=== PATIENT | female | born 1955 | race Caucasian/White ===

== ENCOUNTER 2016-05-03 11:18 | Inpatient (IN) | payer OTHER ==
[2016-05-03] MEDS ORDERED: SODIUM CHLORIDE 1,000 ML IV ONE (12:54)
[2016-05-03] MEDS ORDERED: METOCLOPRAMIDE HCL INJECTION 10 MG/2 ML VIAL IVPUSH ONE (12:54)
--- NOTE | 2016-05-03 13:03 | PDOC ---
History of Present Illness - General History Source: Patient Exam Limitations: No Limitations - History of Present Illness Initial Comments: CHIEF COMPLAINT: 60 y/o afebrile female with PMH HTN, HLD, diverticulitis c/o lower abdominal pain, vomiting and watery diarrhea today. HISTORY OF PRESENT ILLNESS: The patient admits she suffers from constipation and for the past few days has only been passing small pieces of stool. Yesterday she took dulcolax and today she began having watery diarrhea. She also admits to nausea, vomiting and left lower abdominal pain today. She denies f/c, CARROLL, cough, CP, SOB, back pain, hematuria, dysuria. Pt has had her gallbladder removed. Vital signs on arrival are notable for pulse of 111. REVIEW OF SYSTEMS: GENERAL/CONSTITUTIONAL: No fever/chills. No weakness. No weight change. HEAD, EYES, EARS, NOSE AND THROAT: No change in vision. No ear pain or discharge. No sore throat. CARDIOVASCULAR: No chest pain or shortness of breath. RESPIRATORY: No cough, wheezing, or hemoptysis. GASTROINTESTINAL: +abd pain, nausea, vomiting, watery diarrhea. GENITOURINARY: No dysuria, frequency, or change in urination. MUSCULOSKELETAL: No joint or muscle swelling or pain. No neck or back pain. SKIN: No rash or easy bruising. NEUROLOGIC: No headache, vertigo, loss of consciousness, or loss of sensation. PHYSICAL EXAM: GENERAL: The patient is awake, alert, and fully oriented, in no acute distress. She is well appearing and ambulatory. HEAD: Normal with no signs of trauma. ENT: Pupils equal, round and reactive to light, extraocular movements intact, sclera anicteric, conjunctiva clear. Neck supple. LUNGS: Clear to auscultation bilaterally. Normal excursion. No respiratory distress or use of accessory muscles. CV: RRR, S1/S2, no MRG. Cap refill < 2 sec. ABDOMEN: Soft, non-distended, TTP of left lower quadrant, suprapubic and epigastric regions. No rebound, guarding or rigidity. EXTREMITIES: Normal range of motion, no edema. NEUROLOGICAL: Normal speech, normal gait. CN II-XII grossly intact. PSYCH: Normal mood, normal affect. SKIN: Warm, dry, normal turgor, no rashes or lesions noted. <Wohlrosa mariaan,Desiree - Last Filed: 05/03/16 18:52> <Ernst Orona - Last Filed: 05/05/16 11:25> - General Chief Complaint: Pain, Acute Stated Complaint: ABD PAIN, HEADACHE, VOMITING Time Seen by Provider: 05/03/16 12:53 Past History - Past Medical History GI Disorders: Yes (diverticulitis) HTN: Yes Hypercholesterolemia: Yes - Surgical History Cholecystectomy: Yes - Psycho/Social/Smoking Cessation Hx Anxiety: No Suicidal Ideation: No Smoking History: Never smoked Have you smoked in the past 12 months: No Hx Alcohol Use: No Drug/Substance Use Hx: No <Desiree Thorne - Last Filed: 05/03/16 18:52> <Ernst Orona - Last Filed: 05/05/16 11:25> - Past Medical History Allergies/Adverse Reactions: Allergies Allergy/AdvReac Type Severity Reaction Status Date / Time Penicillins Allergy Verified 05/03/16 11:35 procaine HCl [From Novocain] Allergy Verified 05/03/16 11:35 Home Medications: Ambulatory Orders Enalapril Maleate [Vasotec -] 5 mg PO DAILY 10/29/15 Hydrochlorothiazide [Hctz -] 25 mg PO DAILY 10/29/15 *Physical Exam - Vital Signs Last Vital Signs Temp Pulse Resp BP Pulse Ox 97.9 F 111 H 14 110/68 99 05/03/16 11:36 05/03/16 11:36 05/03/16 11:36 05/03/16 11:36 05/03/16 11:36 <Desiree Thorne - Last Filed: 05/03/16 18:52> - Vital Signs Last Vital Signs Temp Pulse Resp BP Pulse Ox 97.7 F 69 20 101/65 97 05/05/16 05:48 05/05/16 05:48 05/05/16 05:48 05/05/16 05:48 05/04/16 21:00 <Ernst Orona - Last Filed: 05/05/16 11:25> ED Treatment Course - LABORATORY CBC & Chemistry Diagram: 05/03/16 13:06 05/03/16 13:06 <Desiree Thorne - Last Filed: 05/03/16 18:52> - LABORATORY CBC & Chemistry Diagram: 05/04/16 06:00 05/04/16 06:00 - ADDITIONAL ORDERS Additional order review: 05/03/16 14:22 Urine Culture - Final Urine - Urine Clean Catch 05/03/16 13:06 RBC 4.85 MCV 87.1 MCHC 32.3 RDW 13.6 MPV 8.6 Neutrophils % 92.0 H D Lymphocytes % 2.0 L D Monocytes % 6.0 - Medications Given in the ED: ED Medications Discontinued Medications Generic Name Dose Route Start Last Admin Trade Name Mir PRN Reason Stop Dose Admin Sodium Chloride 1,000 mls @ 1,000 mls/hr 05/03/16 12:54 05/03/16 13:30 Normal Saline - IV 05/03/16 13:53 1,000 mls/hr .Q1H ONE Administration Famotidine/Sodium Chloride 50 mls @ 100 mls/hr 05/03/16 13:04 05/03/16 13:30 Pepcid 20 Mg Premixed Ivpb - IVPB 05/03/16 13:33 100 mls/hr ONCE ONE Administration Metronidazole 100 mls @ 100 mls/hr 05/03/16 18:46 05/03/16 20:27 Flagyl 500mg Premixed Ivpb - IVPB 05/03/16 19:45 100 mls/hr ONCE ONE Administration Levofloxacin 100 mls @ 100 mls/hr 05/03/16 18:46 05/03/16 21:32 Levaquin 500 Mg Premixed Ivpb - IVPB 05/03/16 19:45 100 mls/hr ONCE ONE Administration Levofloxacin 100 mls @ 100 mls/hr 05/04/16 10:00 05/04/16 10:00 Levaquin 500 Mg Premixed Ivpb - IVPB Not Given DAILY MIGUEL Metoclopramide HCl 10 mg 05/03/16 12:54 05/03/16 13:30 Reglan Injection - IVPUSH 05/03/16 12:55 10 mg ONCE ONE Administration Morphine Sulfate 2 mg 05/03/16 14:56 05/03/16 15:25 Morphine Injection - IVPUSH 05/03/16 14:57 2 mg ONCE ONE Administration Morphine Sulfate 2 mg 05/04/16 07:03 05/04/16 07:11 Morphine Injection - IVPUSH 05/04/16 07:04 2 mg ONCE ONE Administration <Ernst Orona - Last Filed: 05/05/16 11:25> Medical Decision Making - Medical Decision Making A/P: 60 y/o afebrile female with nausea, vomiting and watery diarrhea today with hx of constipation and diverticulitis. Plan is as follows: 1. Labs 2. Abd flat/upright xray 3. UA/culture 4. IV fluids 5. IV reglan Abd flat/upright xray: IMPRESSION: No evidence of ileus, obstruction or free air. 26 WBC count with left shift ordered lactic and CT of abd/pelvis Ordered IV morphine Ct Scan abd/pelvis IMPRESSION: Suspicious for early mild diverticulitis Discussed the case with Dr. Dupont who feels she should be admitted given her age and wbc count of 26 Ordered IV levaquin and flagyl Informed patient of the plan and she is amenable. <Desiree Thorne - Last Filed: 05/03/16 18:52> - Medical Decision Making 05/05/16 11:25 The patient was seen and evaluated in conjunction with ROMINA Thorne under my direct supervision, ancillary studies were reviewed. I agree with the plan as outlined by ROMINA Thorne . <Ernst Orona - Last Filed: 05/05/16 11:25> *DC/Admit/Observation/Transfer - Discharge Dispostion Admit: Yes <Desiree Thorne - Last Filed: 05/03/16 18:52> <Ernst Orona - Last Filed: 05/05/16 11:25> Diagnosis at time of Disposition: Diverticulitis Qualifiers: Diverticulitis site: large intestine Diverticulitis bleeding: without bleeding Diverticulitis complication: without perforation or abscess Qualified Code(s): K57.32 - Diverticulitis of large intestine without perforation or abscess without bleeding - Referrals
[2016-05-03] MEDS ORDERED: FAMOTIDINE 20 MG/50 ML IVPB 50 ML IVPB ONE ×2 (13:04→13:17)
[2016-05-03] MEDS ORDERED: METOCLOPRAMIDE HCL INJECTION 10 MG/2 ML VIAL ONE (13:17)
[2016-05-03 13:57] LABS: MCH 28.1 pg (25.7-33.7); MCHC 32.3 g/dl (32.0-36.0); MEAN CELL VOLUME 87.1 fl (80-96); MEAN PLT VOLUME 8.6 fl (7.5-11.1); PLATELET COUNT 295 K/MM3 (134-434); RDW 13.6 % (11.6-15.6); WHITE BLOOD COUNT 26.5 K/mm3 (4.0-10.0)
[2016-05-03 14:30] LABS: ANION GAP 10 (8-16); CALCIUM 9.9 mg/dL (8.5-10.1); CO2 32 mmol/L (21-32); GLUCOSE,RANDOM 103 mg/dL (74-106)
[2016-05-03 14:34] LABS: ALK PHOS 88 U/L (45-117); BILIRUBIN,TOTAL 0.7 mg/dL (0.2-1.0); CREATININE 0.8 mg/dL (0.55-1.02); SGOT/AST 16 U/L (15-37); SGPT/ALT 27 U/L (12-78); TOT PROT 7.8 g/dl (6.4-8.2)
[2016-05-03 14:44] LABS: PLATELET ESTIMATE ADEQUATE (NORMAL)
[2016-05-03 14:48] LABS: URINE APPEARANCE CLEAR; URINE BILIRUBIN NEGATIVE (NEGATIVE); URINE BLOOD NEGATIVE (NEGATIVE); URINE COLOR YELLOW; URINE GLUCOSE (UA) NEGATIVE (NEGATIVE); URINE KETONE NEGATIVE (NEGATIVE); URINE LEUK ESTERASE NEGATIVE (NEGATIVE); URINE NITRITE NEGATIVE (NEGATIVE); URINE PROTEIN NEGATIVE (NEGATIVE); URINE UROBILINOGEN 2.0 E.U/dl E.U./dl (0.2-1.0)
[2016-05-03] MEDS ORDERED: morphine CARPU-JECT 2 MG/1 ML DISP.SYRIN IVPUSH ONE (14:56)
[2016-05-03] MEDS ORDERED: morphine CARPU-JECT 2 MG/1 ML DISP.SYRIN ONE (15:20)
--- NOTE | 2016-05-03 16:04 | EKG ---
Test Reason : Blood Pressure : / mmHG Vent. Rate : 091 BPM Atrial Rate : 091 BPM P-R Int : 146 ms QRS Dur : 070 ms QT Int : 372 ms P-R-T Axes : 040 040 019 degrees QTc Int : 457 ms NORMAL SINUS RHYTHM NORMAL ECG WHEN COMPARED WITH ECG OF 29-OCT-2015 08:05, NO SIGNIFICANT CHANGE WAS FOUND Confirmed by GERA ALVA MD ([id number]) on 05/03/2016 4:04:12 PM Referred By: Confirmed By:GERA ALVA MD
[2016-05-03] MEDS ORDERED: METRONIDAZOLE 500 MG PREMIXED 100 ML IVPB ONE ×2 (18:46→20:19)
[2016-05-03] MEDS ORDERED: LEVOFLOXACIN 500 MG IVPB 100 ML IVPB ONE ×2 (18:46→21:27)
[2016-05-03 22:10] VITALS: BMI 22.6
[2016-05-03] MEDS ORDERED: DEXTROSE 5%-0.45% SALINE 1,000 ML IV SCH (22:15)
[2016-05-04] MEDS: METRONIDAZOLE 500 MG PREMIXED 100 ML IVPB SCH ×3 (02:25→17:52)
[2016-05-04] MEDS ORDERED: morphine CARPU-JECT 2 MG/1 ML DISP.SYRIN IVPUSH ONE (07:03)
[2016-05-04 07:33] LABS: BASOPHIL 0.2 % (0-2.0); EOSINOPHIL 1.8 % (0-4.5); MCH 29.2 pg (25.7-33.7); MCHC 33.7 g/dl (32.0-36.0); MEAN CELL VOLUME 86.8 fl (80-96); MEAN PLT VOLUME 8.6 fl (7.5-11.1); PLATELET COUNT 251 K/MM3 (134-434); RDW 13.7 % (11.6-15.6); WHITE BLOOD COUNT 11.6 K/mm3 (4.0-10.0)
[2016-05-04 07:49] LABS: CALCIUM 8.5 mg/dL (8.5-10.1)
[2016-05-04 07:55] LABS: ALBUMIN 3.1 g/dl (3.4-5.0); ALK PHOS 69 U/L (45-117); ANION GAP 8 (8-16); BILIRUBIN,TOTAL 0.5 mg/dL (0.2-1.0); CO2 28 mmol/L (21-32); CREATININE 0.8 mg/dL (0.55-1.02); GLUCOSE,RANDOM 91 mg/dL (74-106); SGOT/AST 41 U/L (15-37); SGPT/ALT 56 U/L (12-78); TOT PROT 6.1 g/dl (6.4-8.2)
[2016-05-04] MEDS: HYDROCHLOROTHIAZIDE 25 MG TABLET (FP) PO SCH (09:31)
[2016-05-04] MEDS: ENALAPRIL MALEATE 5 MG TABLET (FP) PO SCH (09:31)
[2016-05-04] MEDS: HEPARIN NA (PORCINE) 5,000 UNITS/ML 1ML VIAL SQ SCH ×2 (09:31→22:00)
[2016-05-04] MEDS ORDERED: LEVOFLOXACIN 500 MG IVPB 100 ML IVPB SCH (10:00)
--- NOTE | 2016-05-04 10:48 | PN ---
Progress Note (short form) - Note Progress Note: ID Consult dictated Acute diverticulitis Possible sepsis secondary to acute diverticulitis Leukocytosis PCN allergy Pending cultures, empiric ceftriaxone/ flagyl
[2016-05-04] MEDS: CEFTRIAXONE 100 ML IVPB SCH (14:53)
--- NOTE | 2016-05-04 15:41 | CONS ---
DATE OF CONSULTATION: DATE OF DICTATION: INFECTIOUS DISEASE CONSULTATION HISTORY OF PRESENT ILLNESS: The patient is a 60-year-old female who is evaluated for acute diverticulitis. The patient was admitted to the hospital on May 03, 2016, with complaints of lower abdominal pain, left greater than right, nausea, vomiting, and nonbloody diarrhea. The patient states she normally suffers from constipation. Over the past several days, she had been passing small amounts of stool. She took some Dulcolax and subsequently developed watery, nonbloody diarrhea. She also complained of nausea and vomiting, and developed left lower quadrant abdominal pain on the day prior to admission. She denies any associated fever or chills. The patient presented to the emergency room where she was noted to be tachycardic. Her white blood cell count was markedly elevated at 26,000. A CAT scan of the abdomen and pelvis showed evidence of acute diverticulitis involving the descending and sigmoid colon. She was empirically treated with Levaquin and Flagyl. She has a history of PENICILLIN allergy. She denied prior episode of diverticulitis. PAST MEDICAL HISTORY: Positive for hyperlipidemia, hypertension, history of osteoarthritis. PAST SURGICAL HISTORY: Status post cholecystectomy. ALLERGIES: PENICILLIN and PROCAINE. Patient reports developing a rash many years ago with PENICILLIN. Denies history of anaphylaxis. MEDICATION: Include Vasotec and hydrochlorothiazide. SOCIAL HISTORY: She lives at home. She is a nonsmoker, nondrinker. SYSTEMS REVIEW: Neurologic: No loss of consciousness, seizure activity, or focal weakness. Cardiac: Negative chest pain or palpitations. Respiratory: Negative cough or sputum production. Gastrointestinal: As per HPI. Genitourinary: Negative for urinary tract infection. LABORATORY DATA: White count on admission 26,000. Hematocrit 34.2, platelet count 251, creatinine 0.8. Liver enzymes normal. Urine: leukocyte esterase negative. PHYSICAL EXAMINATION: General: She is awake and alert. She is in no acute distress. Vital signs: Temperature 98.6, blood pressure 123/73, pulse 83 regular, respirations 16 per minute. HEENT: Sclerae anicteric. Cardiovascular: Heart sounds S1, S2. Respiratory: Lungs clear. Abdomen: Positive bowel sounds. Mild tenderness left lower quadrant to deep palpation. No mass, rebound, or rigidity. Extremities: Negative for edema. IMPRESSION: 1. Acute sigmoid/descending colon diverticulitis, uncomplicated. 2. Possible sepsis secondary to acute diverticulitis. 3. Leukocytosis. 4. PENICILLIN allergy. Pending cultures, empiric antibiotic coverage in this PENICILLIN allergic patient with ceftriaxone and Flagyl. Await culture results. GI evaluation. Will follow. Thank you for the kind referral. NAYLA GO M.D. [id number]
--- NOTE | 2016-05-04 16:18 | HP ---
Admitting History and Physical - Past Medical History ...: No - Smoking History Smoking history: Never smoked Have you smoked in the past 12 months: No - Alcohol/Substance Use Hx Alcohol Use: No Home Medications - Allergies Allergies/Adverse Reactions: Allergies Allergy/AdvReac Type Severity Reaction Status Date / Time Penicillins Allergy Verified 05/03/16 11:35 procaine HCl [From Novocain] Allergy Verified 05/03/16 11:35 - Home Medications Home Medications: Ambulatory Orders Enalapril Maleate [Vasotec -] 5 mg PO DAILY 10/29/15 Hydrochlorothiazide [Hctz -] 25 mg PO DAILY 10/29/15 Physical Examination Vital Signs: Vital Signs Temperature 98.6 F 05/04/16 14:47 Pulse Rate 88 05/04/16 14:47 Respiratory Rate 20 05/04/16 14:47 Blood Pressure 112/69 05/04/16 14:47 O2 Sat by Pulse Oximetry (%) 98 05/04/16 09:00 Labs: CBC, BMP 05/04/16 06:00 05/04/16 06:00
--- NOTE | 2016-05-04 18:44 | CON.GI ---
Consult Consult Specialty:: gastroenterology Referred by:: Dr Dupont - History of Present Illness History of Present Illness: 60 y/o female was doing well until 3am this morning when the patient developed 10/10 llq pain, no nausea, no vomiting, no fever. She had a colonoscopy [address] Cason. This evening the abdominal pain resolved. Tolerated clear liquids. - Past Medical History ...: No - Alcohol/Substance Use Hx Alcohol Use: No - Smoking History Smoking history: Never smoked Have you smoked in the past 12 months: No Home Medications - Allergies Allergies/Adverse Reactions: Allergies Allergy/AdvReac Type Severity Reaction Status Date / Time Penicillins Allergy Verified 05/03/16 11:35 procaine HCl [From Novocain] Allergy Verified 05/03/16 11:35 - Home Medications Home Medications: Ambulatory Orders Enalapril Maleate [Vasotec -] 5 mg PO DAILY 10/29/15 Hydrochlorothiazide [Hctz -] 25 mg PO DAILY 10/29/15 Physical Exam-GI Vital Signs: Vital Signs Temperature 98.4 F 05/04/16 18:00 Pulse Rate 77 05/04/16 18:00 Respiratory Rate 20 05/04/16 18:00 Blood Pressure 114/74 05/04/16 18:00 O2 Sat by Pulse Oximetry (%) 98 05/04/16 09:00 Constitutional: Yes: Well Nourished Eyes: Yes: Conjunctiva Clear HENT: Yes: Atraumatic Neck: Yes: Supple Cardiovascular: Yes: Regular Rate and Rhythm Respiratory: Yes: CTA Bilaterally ...Palpate: Yes: Soft. No: Firm/Rigid, Guarding, Hepatomegaly, Mass, Pulsatile Mass, Splenomegaly, Tenderness, Tenderness, Epigastium Labs: CBC, BMP 05/04/16 06:00 05/04/16 06:00 Problem List - Problems (1) Diverticulitis Assessment/Plan: --resolving R> advance to low residue lactose free diet made aware to ff-up for repeat colonoscopy in 8 weeks continue Levaquin and flagyl as an outpatient for 2 weeks Code(s): K57.92 - DVTRCLI OF INTEST, PART UNSP, W/O PERF OR ABSCESS W/O BLEED Qualifiers: Diverticulitis site: large intestine Diverticulitis bleeding: without bleeding Diverticulitis complication: without perforation or abscess Qualified Code(s): K57.32 - Diverticulitis of large intestine without perforation or abscess without bleeding
[2016-05-05] MEDS: METRONIDAZOLE 500 MG PREMIXED 100 ML IVPB SCH ×2 (01:30→11:08)
[2016-05-05] MEDS: CEFTRIAXONE 100 ML IVPB SCH (11:05)
[2016-05-05] MEDS: ENALAPRIL MALEATE 5 MG TABLET (FP) PO SCH (11:06)
[2016-05-05] MEDS: HYDROCHLOROTHIAZIDE 25 MG TABLET (FP) PO SCH (11:06)
[2016-05-05] MEDS: HEPARIN NA (PORCINE) 5,000 UNITS/ML 1ML VIAL SQ SCH (11:07)
--- NOTE | 2016-05-05 11:28 | PN ---
Progress Note, Physician History of Present Illness: No c/o abdominal pain No N/V/D Reports + BM No fever/ chills Tolerated cephalosporin BC (-) WBC improved - Current Medication List Current Medications: Active Medications Enalapril Maleate (Vasotec -) 5 mg PO DAILY [facility] Last Admin: 05/05/16 11:06 Dose: 5 mg Heparin Sodium (Porcine) (Heparin -) 5,000 unit SQ BID [facility] Last Admin: 05/05/16 11:07 Dose: 5,000 unit Hydrochlorothiazide (Hctz -) 25 mg PO DAILY [facility] Last Admin: 05/05/16 11:06 Dose: 25 mg Dextrose/Sodium Chloride (D5-1/2ns -) 1,000 mls @ 75 mls/hr IV ASDIR [facility] Last Admin: 05/03/16 22:47 Dose: 75 mls/hr Metronidazole (Flagyl 500mg Premixed Ivpb -) 100 mls @ 100 mls/hr IVPB Q8H-IV [facility] Last Admin: 05/05/16 11:08 Dose: 100 mls/hr Ceftriaxone Sodium (Rocephin 2gm Ivpb (Pre-Docked)) 100 mls @ 200 mls/hr IVPB DAILY [facility] Last Admin: 05/05/16 11:05 Dose: 200 mls/hr - Objective Vital Signs: Vital Signs Temperature 97.7 F 05/05/16 05:48 Pulse Rate 69 05/05/16 05:48 Respiratory Rate 20 05/05/16 05:48 Blood Pressure 101/65 05/05/16 05:48 O2 Sat by Pulse Oximetry (%) 97 05/04/16 21:00 Constitutional: Yes: No Distress Eyes: Yes: Conjunctiva Clear Cardiovascular: Yes: Regular Rate and Rhythm, S1, S2 Respiratory: Yes: CTA Bilaterally Gastrointestinal: Yes: Normal Bowel Sounds, Soft. No: Tenderness Edema: No Labs: CBC, BMP 05/04/16 06:00 05/04/16 06:00 Assessment/Plan Acute diverticulitis- improved PCN allergy May substitute po levaquin 500mg qd + flagyl 500mg tid x 10-14d Outpatient GI follow up
[2016-05-05 14:31] VITALS: BP 107/50; PULSE 89; TEMP 98.7
== END 2016-05-05 16:13 | disposition home or self-care (01) | DRG 392 ==
LOC: JER 11:18 → JERBED 18:51 → J7W 21:45
PROVIDERS: ADMIT Internal Medicine; ATTEND Internal Medicine
DX: K57.32 Diverticulitis of large intestine without perforation or abscess without bleeding (principal); I10 Essential (primary) hypertension; E78.5 Hyperlipidemia, unspecified; Z88.0 Allergy status to penicillin
CPT/HCPCS: 36415; 74020-TC; 74177-TC; 80053; 81003; 82378; 83605; 83690; 85025; 86301; 87040; 87086; 93005; 93010; 99285-25; J1644; Q9967

== ENCOUNTER 2016-05-13 12:22 | Emergency (ER) | payer OTHER ==
[2016-05-13 12:43] VITALS: PULSE 82; TEMP 98.3; BMI 23.0
[2016-05-13] MEDS ORDERED: ONDANSETRON 4 MG/2 ML VIAL IVPUSH ONE (13:34)
[2016-05-13] MEDS ORDERED: KETOROLAC TROMETHAMINE 30 MG/1 ML VIAL IVPUSH ONE (13:34)
[2016-05-13] MEDS ORDERED: SODIUM CHLORIDE 1,000 ML IV STA (13:34)
[2016-05-13] MEDS ORDERED: PANTOPRAZOLE SODIUM 40 MG in SODIUM CHLORIDE 100 ML IVPB ONE (13:34)
[2016-05-13] MEDS ORDERED: PANTOPRAZOLE SODIUM 100 ML IVPB ONE (14:00)
[2016-05-13] MEDS ORDERED: KETOROLAC TROMETHAMINE 30 MG/1 ML VIAL ONE (14:00)
[2016-05-13] MEDS ORDERED: ONDANSETRON 4 MG/2 ML VIAL ONE (14:00)
[2016-05-13 14:03] LABS: BASOPHIL 0.6 % (0-2.0); EOSINOPHIL 1.8 % (0-4.5); MCH 29.3 pg (25.7-33.7); MCHC 33.7 g/dl (32.0-36.0); MEAN CELL VOLUME 86.8 fl (80-96); MEAN PLT VOLUME 7.6 fl (7.5-11.1); NEUTROPHILS 62.5 % (42.8-82.8); PLATELET COUNT 324 K/MM3 (134-434); RDW 13.7 % (11.6-15.6); WHITE BLOOD COUNT 6.6 K/mm3 (4.0-10.0)
[2016-05-13 14:29] LABS: ALK PHOS 72 U/L (45-117); ANION GAP 7 (8-16); BILIRUBIN,TOTAL 0.4 mg/dL (0.2-1.0); CALCIUM 9.6 mg/dL (8.5-10.1); CO2 34 mmol/L (21-32); CREATININE 0.8 mg/dL (0.55-1.02); GLUCOSE,RANDOM 99 mg/dL (74-106); MAGNESIUM 2.3 mg/dL (1.8-2.4); SGOT/AST 43 U/L (15-37); SGPT/ALT 66 U/L (12-78); TOT PROT 7.6 g/dl (6.4-8.2)
[2016-05-13 14:32] LABS: TROPONIN I < 0.02 ng/ml (0.00-0.05)
--- NOTE | 2016-05-13 14:58 | PDOC ---
History of Present Illness - General Chief Complaint: Pain, Acute Stated Complaint: ABD PAIN Time Seen by Provider: 05/13/16 13:02 History Source: Patient Exam Limitations: No Limitations - History of Present Illness Travel History: No Initial Comments: 05/13/16 14:07 60-year-old female presents the ED with complaints of epigastric to left upper quadrant cramping social mild nausea and headache since Sunday. Patient states was prescribed Flagyl and Levaquin upon discharge after being admitted a few weeks ago for diverticulitis. Patient states she continues on antibiotics which she is continued to take despite her symptoms. Patient denies history of gastritis, fever, chills, chest pain, shortness of breath, dysuria, or diarrhea. Timing/Duration: reports: intermittent Quality: reports: moderate, burning, sharpness Abdominal Pain Onset Location: reports: epigastric Pain Radiation: reports: LUQ Activities at Onset: reports: none Aggravating Factors: improves with: None Alleviating Factors: improves with: None Past History - Past Medical History Allergies/Adverse Reactions: Allergies Allergy/AdvReac Type Severity Reaction Status Date / Time Penicillins Allergy Verified 05/13/16 12:40 procaine HCl [From Novocain] Allergy Verified 05/13/16 12:40 Home Medications: Ambulatory Orders Enalapril Maleate [Vasotec -] 5 mg PO DAILY 10/29/15 Hydrochlorothiazide [Hctz -] 25 mg PO DAILY 10/29/15 Aspirin [ASA -] 81 mg PO DAILY 05/13/16 Simvastatin 20 mg PO DAILY 05/13/16 Anemia: No Asthma: No Cancer: No CVA: No COPD: No CHF: No Dementia: No GI Disorders: Yes (diverticulitis) HTN: Yes Hypercholesterolemia: Yes Seizures: No - Surgical History Cardiac Surgery: No Cholecystectomy: Yes Neurologic Surgery: No - Psycho/Social/Smoking Cessation Hx Anxiety: No Suicidal Ideation: No Smoking History: Never smoked Have you smoked in the past 12 months: No Hx Alcohol Use: No Drug/Substance Use Hx: No Hx Substance Use Treatment: No Patient Lives Alone: No Lives with/in: spouse/SO Abd/GI Specific PMHX - Complaint Specific PMHX Diverticulitis: Yes Review of Systems - Review of Systems Able to Perform ROS?: Yes Constitutional: No: Symptoms Reported HEENTM: No: Symptoms Reported Respiratory: No: Symptoms reported Cardiac (ROS): No: Symptoms Reported ABD/GI: Yes: Nausea, Indigestion, Abdominal cramping : No: Symptoms Reported Musculoskeletal: No: Symptoms Reported Integumentary: No: Symptoms Reported Neurological: Yes: Headache Endocrine: No: Symptoms Reported Hematologic/Lymphatic: No: Symptoms Reported *Physical Exam - Vital Signs Last Vital Signs Temp Pulse Resp BP Pulse Ox 98.3 F 82 19 113/74 98 05/13/16 12:40 05/13/16 12:40 05/13/16 12:40 05/13/16 12:40 05/13/16 12:40 - Physical Exam General Appearance: Yes: Nourished, Appropriately Dressed. No: Apparent Distress HEENT: negative: Pale Conjunctivae Neck: positive: Normal Thyroid, Supple Respiratory/Chest: positive: Lungs Clear, Normal Breath Sounds. negative: Respiratory Distress, Accessory Muscle Use Cardiovascular: positive: Regular Rhythm, Regular Rate. negative: Murmur Gastrointestinal/Abdominal: positive: Soft, Tenderness (epigastric, left upper quadrant) Musculoskeletal: negative: CVA Tenderness Extremity: positive: Normal Capillary Refill. negative: Pedal Edema Integumentary: positive: Normal Color, Warm, Moist Neurologic: positive: Motor Strength 5/5 (ambulatory) Heart Score/ECG Review - ECG Intrepretation Rhythm: Regular Rhythm (66 normal sinus Rhythm.) ED Treatment Course - LABORATORY CBC & Chemistry Diagram: 05/13/16 14:00 05/13/16 14:00 - ADDITIONAL ORDERS Additional order review: Laboratory Results 05/13/16 05/13/16 14:00 14:00 Sodium 141 Potassium 3.7 Chloride 100 Carbon Dioxide 34 H D Anion Gap 7 L BUN 13 D Creatinine 0.8 Creat Clearance w eGFR > 60 Random Glucose 99 Calcium 9.6 Magnesium 2.3 Total Bilirubin 0.4 AST 43 H ALT 66 Alkaline Phosphatase 72 Creatine Kinase 89 Troponin I < 0.02 Total Protein 7.6 D Albumin 4.0 D Lipase 133 05/13/16 14:00 RBC 4.56 MCV 86.8 MCHC 33.7 RDW 13.7 MPV 7.6 D Neutrophils % 62.5 Lymphocytes % 24.5 Monocytes % 10.6 H Eosinophils % 1.8 Basophils % 0.6 - Medications Given in the ED: ED Medications Discontinued Medications Generic Name Dose Route Start Last Admin Trade Name Freq PRN Reason Stop Dose Admin Pantoprazole Sodium 40 mg/ 100 mls @ 200 mls/hr 05/13/16 13:34 05/13/16 14:08 Sodium Chloride IVPB 05/13/16 14:03 200 mls/hr ONCE ONE Administration Sodium Chloride 1,000 mls @ 1,000 mls/hr 05/13/16 13:34 05/13/16 14:08 Normal Saline - IV 05/13/16 14:33 1,000 mls/hr ASDIR STA Administration Ketorolac Tromethamine 30 mg 05/13/16 13:34 05/13/16 14:09 Toradol Injection - IVPUSH 05/13/16 13:35 30 mg ONCE ONE Administration Ondansetron HCl 4 mg 05/13/16 13:34 05/13/16 14:09 Zofran Injection IVPUSH 05/13/16 13:35 4 mg ONCE ONE Administration Medical Decision Making - Medical Decision Making 05/13/16 13:21 Patient epigastric and left upper quadrant burning and pain for the past 5 days patient states has been on Flagyl and Levaquin for diverticulitis which she was told she had 2 weeks ago. Patient has no other complaints presently except for mild frontal headache and nausea. Patient ordered for labs including Toradol, Protonix and Zofran. Patient also ordered for IV fluids and we will evaluate shortly 05/13/16 15:23 Laboratory Tests 05/13/16 05/13/16 05/13/16 14:00 14:00 14:00 WBC 6.6 D Hgb 13.3 D Hct 39.6 D Neutrophils % 62.5 Monocytes % 10.6 H Sodium 141 Potassium 3.7 Chloride 100 Carbon Dioxide 34 H D Anion Gap 7 L BUN 13 D Creatinine 0.8 Random Glucose 99 Calcium 9.6 AST 43 H ALT 66 Troponin I < 0.02 Lipase 133 05/13/16 16:22 Laboratory Tests 05/13/16 15:20 Urine Ketones Negative Urine Nitrite Negative Ur Leukocyte Esterase Trace H Patient states feeling much better with no complaints presently. Patient be discharged, Protonix and recommended to continue her Levaquin and Flagyl area patient is a recommended to contact Dr. Cho her friction saw operator on Sunday to discuss today's visit. *DC/Admit/Observation/Transfer Diagnosis at time of Disposition: Gastritis Qualifiers: Gastritis type: unspecified gastritis Chronicity: acute Gastritis bleeding: without bleeding Qualified Code(s): K29.00 - Acute gastritis without bleeding Gastroesophageal reflux disease Qualifiers: Esophagitis presence: without esophagitis Qualified Code(s): K21.9 - Gastro- esophageal reflux disease without esophagitis - Discharge Dispostion Disposition: HOME Condition at time of disposition: Improved - Referrals Referrals: Hannah Luna [Primary Care Provider] - Geoffrey Cho MD [Staff Physician] - - Patient Instructions Printed Discharge Instructions: DI for Gastritis, DI for Gastroesophageal Reflux Disease (GERD) Additional Instructions: Please take Protonix as prescribed until you complete your Levaquin and Flagyl starting tomorrow since your given your first dose here in the ER. Please also avoid spicy greasy food. Please contact Dr. Cho on Sunday to discuss today's visit.
--- NOTE | 2016-05-13 15:23 | PDOC ---
*Physical Exam - Vital Signs Last Vital Signs Temp Pulse Resp BP Pulse Ox 98.3 F 82 19 113/74 98 05/13/16 12:40 05/13/16 12:40 05/13/16 12:40 05/13/16 12:40 05/13/16 12:40 Heart Score/ECG Review #1 ECG reviewed & interpreted by me at: 15:24 General ECG Interpretation: Sinus Rhythm, Normal Rate, Normal Intervals, No acute ischemic changes ED Treatment Course - LABORATORY CBC & Chemistry Diagram: 05/13/16 14:00 05/13/16 14:00 - ADDITIONAL ORDERS Additional order review: Laboratory Results 05/13/16 05/13/16 14:00 14:00 Sodium 141 Potassium 3.7 Chloride 100 Carbon Dioxide 34 H D Anion Gap 7 L BUN 13 D Creatinine 0.8 Creat Clearance w eGFR > 60 Random Glucose 99 Calcium 9.6 Magnesium 2.3 Total Bilirubin 0.4 AST 43 H ALT 66 Alkaline Phosphatase 72 Creatine Kinase 89 Troponin I < 0.02 Total Protein 7.6 D Albumin 4.0 D Lipase 133 05/13/16 14:00 RBC 4.56 MCV 86.8 MCHC 33.7 RDW 13.7 MPV 7.6 D Neutrophils % 62.5 Lymphocytes % 24.5 Monocytes % 10.6 H Eosinophils % 1.8 Basophils % 0.6 - Medications Given in the ED: ED Medications Discontinued Medications Generic Name Dose Route Start Last Admin Trade Name Freq PRN Reason Stop Dose Admin Pantoprazole Sodium 40 mg/ 100 mls @ 200 mls/hr 05/13/16 13:34 05/13/16 14:08 Sodium Chloride IVPB 05/13/16 14:03 200 mls/hr ONCE ONE Administration Sodium Chloride 1,000 mls @ 1,000 mls/hr 05/13/16 13:34 05/13/16 14:08 Normal Saline - IV 05/13/16 14:33 1,000 mls/hr ASDIR STA Administration Ketorolac Tromethamine 30 mg 05/13/16 13:34 05/13/16 14:09 Toradol Injection - IVPUSH 05/13/16 13:35 30 mg ONCE ONE Administration Ondansetron HCl 4 mg 05/13/16 13:34 05/13/16 14:09 Zofran Injection IVPUSH 05/13/16 13:35 4 mg ONCE ONE Administration Medical Decision Making - Medical Decision Making 05/13/16 15:23 Pt seen by Midlevel Provider under my direct supervision Ancillary studies reviewed I agree with plan as outlined by Midlevel Provider *DC/Admit/Observation/Transfer Diagnosis at time of Disposition: Gastritis, GERD (gastroesophageal reflux disease) - Discharge Dispostion Disposition: HOME Condition at time of disposition: Improved - Prescriptions Prescriptions: Pantoprazole Sodium [Protonix] 40 mg PO DAILY #7 tablet.dr - Referrals Referrals: Geoffrey Cho MD [Staff Physician] - Hannah Luna [Primary Care Provider] - - Patient Instructions Printed Discharge Instructions: DI for Gastroesophageal Reflux Disease (GERD), DI for Gastritis Additional Instructions: Please take Protonix as prescribed until you complete your Levaquin and Flagyl starting tomorrow since your given your first dose here in the ER. Please also avoid spicy greasy food. Please contact Dr. Cho on Sunday to discuss today's visit.
[2016-05-13 15:33] LABS: URINE APPEARANCE CLEAR; URINE BILIRUBIN NEGATIVE (NEGATIVE); URINE BLOOD NEGATIVE (NEGATIVE); URINE COLOR LTYELLOW; URINE GLUCOSE (UA) NEGATIVE (NEGATIVE); URINE KETONE NEGATIVE (NEGATIVE); URINE NITRITE NEGATIVE (NEGATIVE); URINE PROTEIN NEGATIVE (NEGATIVE); URINE UROBILINOGEN NEGATIVE E.U./dl (0.2-1.0)
[2016-05-13 15:39] LABS: URINE LEUK ESTERASE TRACE (NEGATIVE)
[2016-05-13 16:38] VITALS: BP 120/78
[2016-05-13 17:01] LABS: URINE MUCUS RARE; URINE RBC <1 /hpf (0-3); URINE WBC 2 /hpf (3-5)
--- NOTE | 2016-05-14 20:28 | EKG ---
Test Reason : Blood Pressure : / mmHG Vent. Rate : 066 BPM Atrial Rate : 066 BPM P-R Int : 150 ms QRS Dur : 080 ms QT Int : 414 ms P-R-T Axes : 046 012 030 degrees QTc Int : 434 ms NORMAL SINUS RHYTHM NORMAL ECG WHEN COMPARED WITH ECG OF 03-MAY-2016 14:11, NO SIGNIFICANT CHANGE WAS FOUND Confirmed by CHRISTINE ERICKSON MD ([id number]) on 05/14/2016 8:28:40 PM Referred By: Confirmed By:CHRISTINE ERICKSON MD
== END 2016-05-13 16:39 | disposition home or self-care (01) ==
LOC: JER 12:22
PROC: 3E033GC Introduction of Other Therapeutic Substance into Peripheral Vein, Percutaneous Approach (ICD-10-PCS; principal; 2016-05-13)
PROC: 3E0333Z Introduction of Anti-inflammatory into Peripheral Vein, Percutaneous Approach (ICD-10-PCS; 2016-05-13)
DX: K29.60 Other gastritis without bleeding (principal); K21.9 Gastro-esophageal reflux disease without esophagitis; I10 Essential (primary) hypertension; E78.00 Pure hypercholesterolemia, unspecified; K57.92 Diverticulitis of intestine, part unspecified, without perforation or abscess without bleeding
CPT/HCPCS: 36415; 80053; 81003; 81015; 82550; 83690; 83735; 84484; 85025; 93005; 93010; 96365; 96376; 99282-25

== ENCOUNTER 2017-06-14 20:44 | Emergency (ER) | payer OTHER ==
[2017-06-14 21:05] VITALS: BP 159/99; PULSE 102; TEMP 98.5; BMI 22.8
--- NOTE | 2017-06-14 21:05 | PDOC ---
Rapid Medical Evaluation Time Seen by Provider: 06/14/17 21:00 Medical Evaluation: Allergies Allergy/AdvReac Type Severity Reaction Status Date / Time Penicillins Allergy Verified 06/02/17 11:32 procaine HCl [From Novocain] Allergy Verified 06/02/17 11:32 06/14/17 21:00 I have performed a brief in-person evaluation of this patient. The patient presents with a chief complaint of: RLQ "feels hot", "i have a weird flavor in my mouth", denies nausea/vomiting/diarrhea, urinary frequency Pertinent physical exam findings: no CVA tenderness, no tenderness to RLQ I have ordered the following: labs, UA, UCx The patient will proceed to the ED for further evaluation. Discharge Disposition - Diagnosis Abdominal discomfort in right lower quadrant - Referrals - Patient Instructions - Post Discharge Activity
--- NOTE | 2017-06-14 21:42 | PDOC ---
History of Present Illness - General Chief Complaint: Pain Stated Complaint: PAIN Time Seen by Provider: 06/14/17 21:00 History Source: Patient - History of Present Illness Initial Comments: 06/14/17 22:59 61 year old female with lower abdominal "warmth" x 1 days. reports dysuria and frequency of urination x 1 week. denies fever/ chills, nausea, vomiting, abdominal pain. PMhx: htn. Past History - Past Medical History Allergies/Adverse Reactions: Allergies Allergy/AdvReac Type Severity Reaction Status Date / Time Penicillins Allergy Verified 06/14/17 21:05 procaine HCl [From Novocain] Allergy Verified 06/14/17 21:05 Home Medications: Ambulatory Orders Enalapril Maleate [Vasotec -] 5 mg PO DAILY 10/29/15 Hydrochlorothiazide [Hctz -] 25 mg PO DAILY 10/29/15 Aspirin [ASA -] 81 mg PO DAILY 05/13/16 Pantoprazole Sodium [Protonix] 40 mg PO DAILY #7 tablet. 05/13/16 Simvastatin 20 mg PO DAILY 05/13/16 Cyclobenzaprine HCl 10 mg PO Q8H PRN #14 tablet 06/02/17 Lidocaine 5% Patch [Lidoderm Patch -] 1 patch TP DAILY #10 patch 06/02/17 Naproxen 500 mg PO TID PRN #30 tablet 06/02/17 Sulfamethoxazole/Trimethoprim [Bactrim Ds -] 1 tab PO BID #10 tablet 06/14/17 Anemia: No Asthma: No Cancer: No Cardiac Disorders: No CVA: No COPD: No CHF: No DVT: No Dementia: No Diabetes: No Dialysis: No GI Disorders: Yes (diverticulitis, constipation) HTN: Yes Hypercholesterolemia: Yes Seizures: No - Surgical History Cardiac Surgery: No Cholecystectomy: Yes Neurologic Surgery: No - Suicide/Smoking/Psychosocial Hx Smoking History: Never smoked Have you smoked in the past 12 months: No Information on smoking cessation initiated: No Hx Alcohol Use: No Drug/Substance Use Hx: No Substance Use Type: None Hx Substance Use Treatment: No *Physical Exam - Vital Signs Last Vital Signs Temp Pulse Resp BP Pulse Ox 98.5 F 102 H 19 159/99 100 06/14/17 21:01 06/14/17 21:01 06/14/17 21:01 06/14/17 21:01 06/14/17 21:01 - Physical Exam General Appearance: Yes: Appropriately Dressed Respiratory/Chest: positive: Lungs Clear, Normal Breath Sounds Gastrointestinal/Abdominal: positive: Normal Bowel Sounds, Soft. negative: Tender, Flat, Organomegaly, Pulsatile Mass, Increased Bowel Sounds, Decreased BS , Protuberent, Distended, Guarding, Rebound, Tenderness, Hernia, Mass, Hepatomegaly, Spleenomegaly, Other Musculoskeletal: positive: Normal Inspection. negative: CVA Tenderness Extremity: positive: Normal Capillary Refill, Normal Inspection, Normal Range of Motion Integumentary: positive: Normal Color, Dry, Warm Neurologic: positive: Fully Oriented, Alert, Normal Mood/Affect ED Treatment Course - LABORATORY CBC & Chemistry Diagram: 06/14/17 21:37 06/14/17 21:37 Medical Decision Making - Medical Decision Making 06/14/17 23:03 A: UTI P: cbc CMP UA *DC/Admit/Observation/Transfer Diagnosis at time of Disposition: UTI (urinary tract infection) Qualifiers: Urinary tract infection type: acute cystitis Hematuria presence: without hematuria Qualified Code(s): N30.00 - Acute cystitis without hematuria - Discharge Dispostion Disposition: HOME - Prescriptions Prescriptions: Sulfamethoxazole/Trimethoprim [Bactrim Ds -] 1 tab PO BID #10 tablet - Referrals Referrals: Hannah Luna [Primary Care Provider] - Call tomorrow - Patient Instructions Printed Discharge Instructions: Urinary Tract Infection Additional Instructions: take Bactrim as prescribed. drink plenty of fluids. Additional Instructions: * Please call your personal physician to report your Emergency Department visit and to report your progress, if any. * If there is no improvement in symptoms in 2 days call your physician. * Return to the Emergency Department for any worsening symptoms. - Post Discharge Activity Forms/Work/School Notes: Back to Work
[2017-06-14 21:46] LABS: URINE APPEARANCE CLEAR; URINE BILIRUBIN NEGATIVE (<2.0 mg/dL); URINE BLOOD TRACE-LYSE (NEGATIVE); URINE COLOR LT. YELLOW; URINE GLUCOSE (UA) NEGATIVE (NEGATIVE); URINE KETONE NEGATIVE (NEGATIVE); URINE NITRITE NEGATIVE (NEGATIVE); URINE PROTEIN NEGATIVE (NEGATIVE); URINE UROBILINOGEN 0.2 mg/dL (0.2-1.0)
[2017-06-14 21:47] LABS: URINE LEUK ESTERASE 3+ (NEGATIVE)
[2017-06-14 21:51] LABS: BASO % 0.5 % (0-2.0); EOS % 1.8 % (0-4.5); HEMATOCRIT 38.9 % (32.4-45.2); HEMOGLOBIN 13.3 GM/dL (10.7-15.3); LYMPH % 27.5 % (8-40); MCH 29.7 pg (25.7-33.7); MCHC 34.1 g/dl (32.0-36.0); MEAN CELL VOLUME 87.1 fl (80-96); MEAN PLT VOLUME 8.3 fl (7.5-11.1); MONO % 7.3 % (3.8-10.2); NEUT % 62.9 % (42.8-82.8); PLATELET COUNT 359 K/MM3 (134-434); RBC 4.46 M/mm3 (3.60-5.2); RDW 13.9 % (11.6-15.6); WHITE BLOOD COUNT 10.7 K/mm3 (4.0-10.0)
[2017-06-14 22:31] LABS: ALBUMIN 3.8 g/dl (3.4-5.0); ANION GAP 6 (8-16); BLOOD UREA NITROGEN 17 mg/dL (7-18); CALCIUM 9.3 mg/dL (8.5-10.1); CHLORIDE 103 mmol/L (98-107); CO2 31 mmol/L (21-32); GLUCOSE,RANDOM 98 mg/dL (74-106); POTASSIUM 3.9 mmol/L (3.5-5.1); SGOT/AST 13 U/L (15-37); SGPT/ALT 22 U/L (12-78); SODIUM 140 mmol/L (136-145)
[2017-06-14 22:33] LABS: ALK PHOS 83 U/L (45-117); BILIRUBIN,TOTAL 0.2 mg/dL (0.2-1.0); TOT PROT 7.9 g/dl (6.4-8.2)
[2017-06-14] MEDS ORDERED: SULFAMETHOXAZOLE/TRIMETHOPRIM 800MG/160MG D.S. TABLET PO ONE (22:52)
[2017-06-14] MEDS ORDERED: SULFAMETHOXAZOLE/TRIMETHOPRIM 800MG/160MG D.S. TABLET ONE (23:16)
== END 2017-06-14 23:22 | disposition home or self-care (01) ==
LOC: JER 20:44
DX: N30.00 Acute cystitis without hematuria (principal); I10 Essential (primary) hypertension; E78.00 Pure hypercholesterolemia, unspecified; Z87.19 Personal history of other diseases of the digestive system; Z79.82 Long term (current) use of aspirin; Z88.8 Allergy status to other drugs, medicaments and biological substances
CPT/HCPCS: 36415; 80053; 81003; 81015; 83690; 85025; 99283-25

== ENCOUNTER 2017-06-18 19:06 | Emergency (ER) | payer OTHER ==
[2017-06-18 19:30] VITALS: BP 119/79; PULSE 114; TEMP 98.8; BMI 23.4
--- NOTE | 2017-06-18 22:40 | PDOC ---
History of Present Illness <Ernst Orona - Last Filed: 06/19/17 01:52> - General History Source: Patient Exam Limitations: No Limitations - History of Present Illness Initial Comments: 06/19/17 01:14 The patient is a 61 year old female with significant PMH of Hypertension, hypercholesterolemia, constipation, and diverticulitis who presents to the emergency department with right upper quadrant abdominal pain for 1 week. The patient reports that her abdominal pain as constant and a 10/10 in severity and describes a hot sensation in her abdomen. She reports associated nausea, headache and weakness. The patient reports that she was treated for a recent UTI 2 days ago in the ED. She denies any dysuria, frequency, urgency flank pain , and hematuria. She reports constipation with no apparent relief. The patient denies any associated back pain, vomiting, fever or chills. The patient also denies any diarrhea. She denies chest pain, shortness of breath, headache and dizziness. Allergies: Penicillin, Procaine HCl Past surgical history: Cholecystectomy Social history: No reported PCP: Hannah Reina <Afshan Dia - Last Filed: 06/19/17 02:00> - General Chief Complaint: Nausea/Vomiting Stated Complaint: FATIGUE/PAIN Time Seen by Provider: 06/18/17 21:56 Past History - Past Medical History Anemia: No Asthma: No Cancer: No Cardiac Disorders: No CVA: No COPD: No CHF: No DVT: No Dementia: No Diabetes: No Dialysis: No GI Disorders: Yes (diverticulitis, constipation) HTN: Yes Hypercholesterolemia: Yes Seizures: No - Surgical History Cardiac Surgery: No Cholecystectomy: Yes Neurologic Surgery: No - Suicide/Smoking/Psychosocial Hx Smoking History: Never smoked Have you smoked in the past 12 months: No Information on smoking cessation initiated: No Hx Alcohol Use: No Drug/Substance Use Hx: No Substance Use Type: None Hx Substance Use Treatment: No <Ernst Orona - Last Filed: 06/19/17 01:52> <Afshan Dia - Last Filed: 06/19/17 02:00> - Past Medical History Allergies/Adverse Reactions: Allergies Allergy/AdvReac Type Severity Reaction Status Date / Time Penicillins Allergy Verified 06/18/17 19:30 procaine HCl [From Novocain] Allergy Verified 06/18/17 19:30 Home Medications: Ambulatory Orders Enalapril Maleate [Vasotec -] 5 mg PO DAILY 10/29/15 Hydrochlorothiazide [Hctz -] 25 mg PO DAILY 10/29/15 Aspirin [ASA -] 81 mg PO DAILY 05/13/16 Pantoprazole Sodium [Protonix] 40 mg PO DAILY #7 tablet. 05/13/16 Simvastatin 20 mg PO DAILY 05/13/16 Cyclobenzaprine HCl 10 mg PO Q8H PRN #14 tablet 06/02/17 Naproxen 500 mg PO TID PRN #30 tablet 06/02/17 Sulfamethoxazole/Trimethoprim [Bactrim Ds -] 1 tab PO BID #10 tablet 06/14/17 Amitriptyline HCl [Elavil -] 10 mg PO DAILY 06/18/17 Calcium Carbonate/Vitamin D3 [Oyster Shell 500-Vit D3 200 Tb] 1 each PO DAILY Clindamycin [Cleocin -] 150 mg PO Q8H 06/18/17 Loratadine 10 mg PO DAILY 06/18/17 Ondansetron HCl [Zofran] 4 mg PO QID PRN #14 tablet 06/19/17 Psyllium Husk [Metamucil] 0.4 gm PO BID #30 capsule 06/19/17 Review of Systems - Review of Systems Able to Perform ROS?: Yes Comments:: 06/19/17 01:15 CONSTITUTIONAL: No reported: Fever, Chills, Diaphoresis, Generalized Weakness, Malaise, Loss of Appetite HEENT: No reported: Rhinorrhea, Nasal Congestion, Throat Pain, Throat Swelling, Difficulty Swallowing, Mouth Swelling, Ear Pain, Eye Pain, Visual Changes CARDIOVASCULAR: No reported: Chest Pain, Syncope, Palpitations, Irregular Heart Rate, Lightheadedness, Peripheral Edema RESPIRATORY: No reported: Cough, Shortness of Breath, SOB with Exertion, Orthopnea, Wheezing , Stridor, Hemoptysis GASTROINTESTINAL: Reported (+) Abdominal pain, nausea, constipation No reported: Abdominal Distension, Vomiting, Diarrhea, Melena, Hematochezia GENITOURINARY: No reported: Dysuria, Frequency, Urgency, Hesitancy, Flank Pain, Genital Pain MUSCULOSKELETAL: No reported: Myalgia, Arthralgia, Joint Swelling, Back pain, Neck Pain SKIN: No reported: Rash, Itching, Pallor HEMEATOLOGIC/IMMUNOLOGIC: No reported: Easy Bleeding, Easy Bruising, Lymphadenopathy, Frequent infections ENDOCRINE: No reported: Unexplained Weight Gain, Unexplained Weight Loss, Heat Intolerance , Cold Intolerance NEUROLOGIC: No reported: Headache, Focal Weakness, Paresthesias, Vertigo, Lightheadedness, Unsteady Gait, Seizure, Mental Status Changes, Incontinence PSYCHIATRIC: No reported: Anxiety, Depression <Afshan Dia - Last Filed: 06/19/17 02:00> *Physical Exam - Vital Signs Last Vital Signs Temp Pulse Resp BP Pulse Ox 98.8 F 114 H 18 119/79 97 06/18/17 19:26 06/18/17 19:26 06/18/17 19:26 06/18/17 19:26 06/18/17 19:26 <Ernst Orona - Last Filed: 06/19/17 01:52> - Vital Signs Last Vital Signs Temp Pulse Resp BP Pulse Ox 98.8 F 114 H 18 119/79 97 06/18/17 19:26 06/18/17 19:26 06/18/17 19:26 06/18/17 19:26 06/18/17 19:26 - Physical Exam Comments: 06/19/17 01:15 GENERAL: The patient is awake, alert, and fully oriented, Nontoxic - in no acute distress. HEAD: Normocephalic, atraumatic. EYES: extraocular movements intact, sclera anicteric, conjunctiva clear. ENT: Normal voice, Moist mucous membranes. NECK: Normal range of motion, supple LUNGS: Breath sounds equal, clear to auscultation bilaterally. No wheezes, no rhonchi, no rales. HEART: Regular rate and rhythm, normal S1 and S2 without murmur, rub or gallop. ABDOMEN: +RLQ tenderness, no CVA tenderness, no rebound/guarding, EXTREMITIES: Normal range of motion, no edema. No clubbing or cyanosis. No cords, erythema, or tenderness. NEUROLOGICAL: No facial assymetry, Normal speech, PSYCH: Normal mood, normal affect. SKIN: Warm, Dry, normal turgor, <Afshan Dia - Last Filed: 06/19/17 02:00> Heart Score/ECG Review - ECG Impressions Comment:: 06/19/17 00:09 Twelve-lead EKG was performed and reviewed by me. There is normal sinus rhythm with a normal rate. Rate of 83 The axis is normal. The intervals are normal. There is normal R wave progression There are no ST or T wave abnormalities. Impression: Normal twelve-lead EKG <Ernst Orona - Last Filed: 06/19/17 01:52> ED Treatment Course - LABORATORY CBC & Chemistry Diagram: 06/18/17 23:30 06/18/17 23:30 <Ernst Orona - Last Filed: 06/19/17 01:52> - LABORATORY CBC & Chemistry Diagram: 06/18/17 23:30 06/18/17 23:30 - ADDITIONAL ORDERS Additional order review: Laboratory Results 06/18/17 06/18/17 23:30 23:30 Sodium 138 Potassium 4.1 Chloride 100 Carbon Dioxide 30 Anion Gap 8 BUN 13 Creatinine 1.4 H Creat Clearance w eGFR 38.23 Random Glucose 109 H Calcium 9.6 Total Bilirubin 0.4 D AST 16 ALT 22 Alkaline Phosphatase 93 Total Protein 8.3 H Albumin 4.1 Lipase 115 Urine Color Straw Urine Appearance Clear Urine pH 5.0 Ur Specific [place] 1.006 Urine Protein Negative Urine Glucose (UA) Negative Urine Ketones Negative Urine Blood Negative Urine Nitrite Negative Urine Bilirubin Negative Urine Urobilinogen Negative Ur Leukocyte Esterase Negative 06/18/17 23:30 RBC 4.59 MCV 87.4 MCHC 34.1 RDW 13.9 MPV 8.2 Neutrophils % 67.1 Lymphocytes % 20.8 D Monocytes % 10.6 H Eosinophils % 0.8 Basophils % 0.7 - RADIOLOGY Radiograph Interpretation: 06/19/17 01:59 EXAM: ABDOMEN \T\ PELVIS CT WITH CONTR IMPRESSION: No localizing signs for acute pathology. Reported by : Imaging Oncall - Medications Given in the ED: ED Medications Discontinued Medications Generic Name Dose Route Start Last Admin Trade Name Freq PRN Reason Stop Dose Admin Sodium Chloride 1,000 mls @ 1,000 mls/hr 06/18/17 22:43 06/18/17 23:37 Normal Saline - IV 06/18/17 23:42 1,000 mls/hr .Q1H ONE Administration Morphine Sulfate 2 mg 06/18/17 22:57 06/18/17 23:37 Morphine Injection - IVPUSH 06/18/17 22:58 2 mg ONCE ONE Administration Ondansetron HCl 4 mg 06/18/17 22:43 04/09/18 23:37 Zofran Injection IVPB 06/18/17 22:44 4 mg ONCE ONE Administration <Afshan Dia - Last Filed: 06/19/17 02:00> Medical Decision Making - Medical Decision Making 06/18/17 22:39 61y hx of htn, hl, diverticulitis presenting with complaint of R sided abdominal pain x 1 week, has been worsening with associated nausea without associated vomiting, fever/chills, back pain. pt was treated in the ED for UTI 2 days ago. on exam pt has notable RLQ tenderness with rebound. ddx includes posible appendicitis vs cystitis will ck labs, repeta UA, ct abdomen will reassess A portion of this note was documented by scribe services under my direction. I have reviewed the details of the note, within reason, and agree with the documentation with the following case summary and management plan written by me 06/19/17 01:44 Pts labs reviewed no leukocytosis noted ua not suggestive of UTI pts CT negative for any acute paothology pt feeling improved abd soft nontender on repea exam tolerating fluids will dc with pmd pt notes she has not had a BM in 3 days. will give her some laxitives will hvae her fu with dr. morocho/pmd tomorrow Return precautions were discussed I discussed the physical exam findings, ancillary test results and final diagnoses with the patient. I answered all of the patient's questions. The patient was satisfied with the care received and felt comfortable with the discharge plan and treatment plan. The patient will call their primary care physician within 24 hours to arrange follow-up and will return to the Emergency Department with any new, persistent or worsening symptoms. 06/19/17 01:52 pt was noted tachycardic originally to 114 - but on repeat she was 91 on the monitor, sat was 97% on RA <Ernst Orona - Last Filed: 06/19/17 01:52> *DC/Admit/Observation/Transfer - Discharge Dispostion Admit: No <Ernst Orona - Last Filed: 06/19/17 01:52> - Attestations Scribe Attestion: 06/19/17 01:16 Documentation prepared by Afshan Dia, acting as medical record technician for Ernst Orona MD. <Afshan Dia - Last Filed: 06/19/17 02:00> Diagnosis at time of Disposition: Abdominal pain Qualifiers: Abdominal location: right lower quadrant Qualified Code(s): R10.31 - Right lower quadrant pain - Discharge Dispostion Disposition: HOME Condition at time of disposition: Improved - Prescriptions Prescriptions: Ondansetron HCl [Zofran] 4 mg PO QID PRN #14 tablet PRN Reason: Nausea Psyllium Husk [Metamucil] 0.4 gm PO BID #30 capsule - Referrals Referrals: Hannah Morocho [Primary Care Provider] - - Patient Instructions Printed Discharge Instructions: DI for Abdominal Pain-Adult Additional Instructions: Regrese al departamento de emergencia de inmediato con CUALQUIER sntoma nuevo, persistente o que empeore, elsie empeoramiento del dolor abdominal, fiebre, incapacidad para tolerar la ingesta oral, dolor en el pecho, dificultad para respirar o cualquier otra inquietud. Mantente jose hidratado. DEBE llamar y hacer un seguimiento con marx mdico maana. Marx visita al departamento de emergencia no est completa sin un seguimiento con marx mdico para la reevaluacin. Asegrese de que marx mdico revise los resultados de marx evaluacin de emergencia. ========= Return to the emergency department immediately with ANY new, persistent or worsening symptoms including worsening abdominal pain, fevers, inability to tolerate oral intake, chest pain, shortness of breath or any other concerns. Stay well hydrated. You MUST call and follow up with your doctor tomorrow. Your emergency department visit is not complete without a followup with your doctor for reevaluation. Please make sure your doctor reviews the results of your emergency evaluation. Print Language: CHINESE - Post Discharge Activity
[2017-06-18] MEDS ORDERED: ONDANSETRON 4 MG/2 ML VIAL IVPB ONE (22:43)
[2017-06-18] MEDS ORDERED: SODIUM CHLORIDE 1,000 ML IV ONE (22:43)
[2017-06-18] MEDS ORDERED: morphine CARPU-JECT 2 MG/1 ML DISP.SYRIN IVPUSH ONE (22:57)
[2017-06-18] MEDS ORDERED: morphine SULFATE 4 MG/ML VIAL ONE (23:04)
[2017-06-18] MEDS ORDERED: ONDANSETRON 4 MG/2 ML VIAL ONE (23:05)
[2017-06-18 23:39] LABS: BASO % 0.7 % (0-2.0); EOS % 0.8 % (0-4.5); HEMATOCRIT 40.1 % (32.4-45.2); HEMOGLOBIN 13.7 GM/dL (10.7-15.3); LYMPH % 20.8 % (8-40); MCH 29.8 pg (25.7-33.7); MCHC 34.1 g/dl (32.0-36.0); MEAN CELL VOLUME 87.4 fl (80-96); MEAN PLT VOLUME 8.2 fl (7.5-11.1); MONO % 10.6 % (3.8-10.2); NEUT % 67.1 % (42.8-82.8); PLATELET COUNT 358 K/MM3 (134-434); RBC 4.59 M/mm3 (3.60-5.2); RDW 13.9 % (11.6-15.6); WHITE BLOOD COUNT 7.6 K/mm3 (4.0-10.0)
[2017-06-18 23:41] LABS: URINE APPEARANCE CLEAR; URINE BILIRUBIN NEGATIVE (<2.0 mg/dL); URINE BLOOD NEGATIVE (NEGATIVE); URINE COLOR STRAW; URINE GLUCOSE (UA) NEGATIVE (NEGATIVE); URINE KETONE NEGATIVE (NEGATIVE); URINE LEUK ESTERASE NEGATIVE (NEGATIVE); URINE NITRITE NEGATIVE (NEGATIVE); URINE PROTEIN NEGATIVE (NEGATIVE); URINE UROBILINOGEN NEGATIVE mg/dL (0.2-1.0)
[2017-06-19 00:11] LABS: ALBUMIN 4.1 g/dl (3.4-5.0); ANION GAP 8 (8-16); BLOOD UREA NITROGEN 13 mg/dL (7-18); CALCIUM 9.6 mg/dL (8.5-10.1); CHLORIDE 100 mmol/L (98-107); CO2 30 mmol/L (21-32); CREATININE 1.4 mg/dL (0.55-1.02); GLUCOSE,RANDOM 109 mg/dL (74-106); LIPASE 115 U/L (73-393); POTASSIUM 4.1 mmol/L (3.5-5.1); SGOT/AST 16 U/L (15-37); SGPT/ALT 22 U/L (12-78); SODIUM 138 mmol/L (136-145)
[2017-06-19 00:13] LABS: ALK PHOS 93 U/L (45-117); BILIRUBIN,TOTAL 0.4 mg/dL (0.2-1.0); TOT PROT 8.3 g/dl (6.4-8.2)
[2017-06-19] MEDS ORDERED: METOCLOPRAMIDE HCL INJECTION 10 MG/2 ML VIAL IVPUSH ONE (01:17)
[2017-06-19] MEDS ORDERED: METOCLOPRAMIDE HCL INJECTION 10 MG/2 ML VIAL ONE (01:20)
[2017-06-19] MEDS ORDERED: BISACODYL 5 MG TABLET.DR (FP) PO ONE (01:47)
[2017-06-19] MEDS ORDERED: BISACODYL 5 MG TABLET.DR (FP) ONE (02:01)
--- NOTE | 2017-06-19 10:32 | EKG ---
Test Reason : Blood Pressure : / mmHG Vent. Rate : 083 BPM Atrial Rate : 083 BPM P-R Int : 146 ms QRS Dur : 076 ms QT Int : 396 ms P-R-T Axes : 050 029 034 degrees QTc Int : 465 ms NORMAL SINUS RHYTHM NORMAL ECG WHEN COMPARED WITH ECG OF 13-MAY-2016 14:29, NO SIGNIFICANT CHANGE WAS FOUND Confirmed by MD Medina Daniel ([id number]) on 06/19/2017 10:31:29 AM Referred By: Confirmed By:Tony Medina MD
== END 2017-06-19 02:15 | disposition home or self-care (01) ==
LOC: JER 19:06
PROC: 3E033NZ Introduction of Analgesics, Hypnotics, Sedatives into Peripheral Vein, Percutaneous Approach (ICD-10-PCS; principal; 2017-06-18)
PROC: 3E033GC Introduction of Other Therapeutic Substance into Peripheral Vein, Percutaneous Approach (ICD-10-PCS; 2017-06-18)
PROC: 3E033GC Introduction of Other Therapeutic Substance into Peripheral Vein, Percutaneous Approach (ICD-10-PCS; 2017-06-18)
DX: R10.31 Right lower quadrant pain (principal); I10 Essential (primary) hypertension; E78.00 Pure hypercholesterolemia, unspecified; K59.00 Constipation, unspecified; Z87.19 Personal history of other diseases of the digestive system
CPT/HCPCS: 36415; 74177-TC; 80053; 81003; 83690; 85025; 87086; 93005; 93010; 96374; 96375; 99282-25; J7030

== ENCOUNTER 2018-05-11 10:34 | Emergency (ER) | payer OTHER ==
[2018-05-11 10:51] VITALS: BP 118/70; PULSE 109; TEMP 98.8; BMI 23.4
--- NOTE | 2018-05-11 11:12 | PDOC ---
History of Present Illness - General Chief Complaint: Abscess Boil Stated Complaint: CYST Time Seen by Provider: 05/11/18 11:11 History Source: Patient, Significant Other - History of Present Illness Initial Comments: 05/11/18 11:32 62 y/o female just returned from [place] 4 days ago but developed rash on both buttocks and under rt breast 3 days ago. Rash is puritic and painful. PT also c/o tactile fever last night. No meds taken for anastasia and pt has slight headcahe at present. PT is non toxic appearing and not in acute distress Timing/Duration: 1 week Severity: mild Past History - Past Medical History Allergies/Adverse Reactions: Allergies Allergy/AdvReac Type Severity Reaction Status Date / Time Penicillins Allergy Verified 05/11/18 10:47 procaine HCl [From Novocain] Allergy Verified 05/11/18 10:47 Home Medications: Ambulatory Orders Hydrochlorothiazide [Hctz -] 25 mg PO DAILY 10/29/15 Simvastatin 20 mg PO DAILY 05/13/16 Mupirocin Ointment [Bactroban 2% Ointment -] 1 applic TP BID 7 Days #30 applic 05/11/18 Simvastatin 10 mg PO DAILY 05/11/18 Sulfamethoxazole/Trimethoprim [Bactrim Ds -] 1 tab PO BID #14 tablet 05/11/18 Anemia: No Asthma: No Cancer: No Cardiac Disorders: No CVA: No COPD: No CHF: No DVT: No Dementia: No Diabetes: No Dialysis: No GI Disorders: Yes (diverticulitis, constipation) HTN: Yes Hypercholesterolemia: Yes Seizures: No - Surgical History Cardiac Surgery: No Cholecystectomy: Yes Neurologic Surgery: No - Suicide/Smoking/Psychosocial Hx Smoking History: Never smoked Have you smoked in the past 12 months: No Information on smoking cessation initiated: No Hx Alcohol Use: No Drug/Substance Use Hx: No Substance Use Type: None Hx Substance Use Treatment: No Review of Systems - Review of Systems Constitutional: Yes: Chills, Fever Respiratory: No: Shortness of Breath, SOB at Rest, Wheezing Cardiac (ROS): No: Chest Pain, Palpitations, Chest Tightness ABD/GI: No: Diarrhea, Nausea, Vomiting : No: Hematuria, Urgency Integumentary: Yes: Lesions (pt with red bumps on varios parts of body mostly on buttock area , one under rt breast) *Physical Exam - Vital Signs Last Vital Signs Temp Pulse Resp BP Pulse Ox 98.8 F 109 H 20 118/70 98 05/11/18 10:49 05/11/18 10:49 05/11/18 10:49 05/11/18 10:49 05/11/18 10:49 - Physical Exam General Appearance: Yes: Nourished, Appropriately Dressed. No: Apparent Distress HEENT: positive: NISHA Neck: positive: Supple. negative: Tender midline Respiratory/Chest: positive: Lungs Clear, Normal Breath Sounds. negative: Respiratory Distress Cardiovascular: positive: Regular Rhythm, S1, S2 (pt with mild tachycardia hr 109) Gastrointestinal/Abdominal: positive: Normal Bowel Sounds, Flat, Soft. 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 intact, Fully Oriented, Alert, Normal Response, Motor Strength 5/5 Moderate Sedation - Procedure Monitoring Vital Signs: Procedure Monitoring Vital Signs Temperature 98.8 F 05/11/18 10:49 Pulse Rate 109 H 05/11/18 10:49 Respiratory Rate 20 05/11/18 10:49 Blood Pressure 118/70 05/11/18 10:49 O2 Sat by Pulse Oximetry (%) 98 05/11/18 10:49 ED Treatment Course - LABORATORY CBC & Chemistry Diagram: 05/11/18 11:50 05/11/18 11:50 Medical Decision Making - Medical Decision Making 05/11/18 11:37 62 y/o female here in ED c/o puritic and slightly painful rash mostly on both buttocks and under rt breast x 3 days. Rash looks like a folliculitis, andrés obtain cbc, cmp, esr, tylenol for pain and reevaluate. Pt with mildly elevated hr most likely secondary to pain. Pt is non toxic appearing and not in acute distress, Pt with mildly elevated wbc 11.8 with slight left shift,chemistries unremarkable, esr 27. Pt is stable for dc home with bactrim and bactroban to affected area on the body. Pt hr 100 at time of physical and saturating 98% on rm air. Pt stable for dc home Pt agrees with this dc plan, pt to f/u with pcp. 03/02/19 14:23 *DC/Admit/Observation/Transfer Diagnosis at time of Disposition: Rash and nonspecific skin eruption - Discharge Dispostion Disposition: HOME Condition at time of disposition: Stable Decision to Admit order: No - Prescriptions Prescriptions: Mupirocin Ointment [Bactroban 2% Ointment -] 1 applic TP BID 7 Days #30 applic Sulfamethoxazole/Trimethoprim [Bactrim Ds -] 1 tab PO BID #14 tablet - Referrals Referrals: Geoffrey Sanchez PA [Primary Care Provider] - - Patient Instructions Printed Discharge Instructions: DI for Rash Print Language: KOSOVAN - Post Discharge Activity
[2018-05-11] MEDS ORDERED: ACETAMINOPHEN 500 MG TABLET (FP) PO ONE (11:25)
[2018-05-11] MEDS ORDERED: ACETAMINOPHEN 325 MG TABLET (FP) ONE (11:40)
[2018-05-11 12:03] LABS: BASO % 0.3 % (0-2.0); EOS % 1.2 % (0-4.5); HEMATOCRIT 39.1 % (32.4-45.2); HEMOGLOBIN 13.3 GM/dL (10.7-15.3); LYMPH % 17.6 % (8-40); MEAN CELL VOLUME 88.2 fl (80-96); MONO % 6.8 % (3.8-10.2); NEUT % 74.1 % (42.8-82.8); PLATELET COUNT 333 K/MM3 (134-434); RBC 4.44 M/mm3 (3.60-5.2); RDW 14.3 % (11.6-15.6); WHITE BLOOD COUNT 11.8 K/mm3 (4.0-10.0)
[2018-05-11 12:48] LABS: ALBUMIN 3.5 g/dl (3.4-5.0); ALK PHOS 83 U/L (45-117); ANION GAP 6 MMOL/L (8-16); BILIRUBIN,TOTAL 0.5 mg/dL (0.2-1); BLOOD UREA NITROGEN 17 mg/dL (7-18); CHLORIDE 103 mmol/L (98-107); CO2 32 mmol/L (21-32); GLUCOSE,RANDOM 100 mg/dL (74-106); POTASSIUM 3.9 mmol/L (3.5-5.1); SGOT/AST 10 U/L (15-37); SGPT/ALT 40 U/L (13-61); SODIUM 141 mmol/L (136-145); TOT PROT 7.3 g/dl (6.4-8.2)
== END 2018-05-11 13:50 | disposition home or self-care (01) ==
LOC: JER 10:34
DX: R21 Rash and other nonspecific skin eruption (principal)
CPT/HCPCS: 36415; 80053; 83880; 85025; 85651; 99282-25

== ENCOUNTER 2018-05-18 09:52 | Emergency (ER) | payer OTHER ==
[2018-05-18 09:57] VITALS: BP 136/88; TEMP 98.2; BMI 23.4
[2018-05-18] MEDS ORDERED: ALBUTEROL SO4 2.5/IPRATROPIUM 0.5 INH SOL 3 ML VIAL.NEB. NEB ONE ×2 (10:38→10:42)
--- NOTE | 2018-05-18 10:44 | PDOC ---
History of Present Illness - General Chief Complaint: Respiratory Stated Complaint: COUGH/HEADACHE Time Seen by Provider: 05/18/18 10:18 History Source: Patient Exam Limitations: No Limitations - History of Present Illness Initial Comments: 05/18/18 10:41 62yo F w/ a PMHx HTN, HLD comes in c/o 6 days of generalized malaise, cough productive of yellow sputum, chest and back pain when she coughs, nose pain, nasal congestion, runny nose, lightheadedness when she gets up, fatigue, (+) subjective fever which resolved 2 days ago, decrease in appetite, good fluid intake, no decrease in urination, no known sick contacts, (+)recent ravel from [place]. NO other complaints today, no abdominal pain, no NVD, no neck pain/ stiffness, no rash. 05/18/18 10:44 Past History - Past Medical History Allergies/Adverse Reactions: Allergies Allergy/AdvReac Type Severity Reaction Status Date / Time Penicillins Allergy Verified 05/18/18 09:57 procaine HCl [From Novocain] Allergy Verified 05/18/18 09:57 Home Medications: Ambulatory Orders Hydrochlorothiazide [Hctz -] 25 mg PO DAILY 10/29/15 Mupirocin Ointment [Bactroban 2% Ointment -] 1 applic TP BID 7 Days #30 applic 05/11/18 Simvastatin mg PO DAILY 05/11/18 Sulfamethoxazole/Trimethoprim [Bactrim Ds -] 1 tab PO BID #14 tablet 05/11/18 Albuterol Sulfate Inhaler - [Ventolin HFA Inhaler -] 1 - 2 inh PO Q4H 3 Days #1 inhaler 05/18/18 Fluticasone Prop 0.05% Nasal [Flonase -] 1 spray NS DAILY 20 Days #1 bot Sodium Chloride [Saline Nasal [place]] 30 ml NS QID #1 bot 05/18/18 Anemia: No Asthma: No Cancer: No Cardiac Disorders: No CVA: No COPD: No CHF: No DVT: No Dementia: No Diabetes: No Dialysis: No GI Disorders: Yes (diverticulitis, constipation) HTN: Yes Hypercholesterolemia: Yes Seizures: No - Surgical History Cardiac Surgery: No Cholecystectomy: Yes Neurologic Surgery: No - Suicide/Smoking/Psychosocial Hx Smoking History: Never smoked Have you smoked in the past 12 months: No Hx Alcohol Use: No Drug/Substance Use Hx: No Substance Use Type: None Hx Substance Use Treatment: No Review of Systems - Review of Systems Able to Perform ROS?: Yes Constitutional: Yes: Fever, Malaise. No: Chills, Night Sweats HEENTM: No: Eye Pain, Recent change in vision, Throat Pain Respiratory: Yes: Cough. No: Shortness of Breath Cardiac (ROS): Yes: Chest Tightness. No: Palpitations ABD/GI: No: Diarrhea, Nausea, Vomiting, Abdominal cramping : No: Dysuria, Hematuria Musculoskeletal: No: Back Pain Integumentary: No: Rash Neurological: No: Headache, Numbness, Dizziness Psychiatric: No: Change in Appetite Endocrine: No: Unexplained Weight Loss *Physical Exam - Vital Signs Last Vital Signs Temp Pulse Resp BP Pulse Ox 98.2 F 104 H 20 136/88 99 05/18/18 09:54 05/18/18 09:54 05/18/18 09:54 05/18/18 09:54 05/18/18 09:54 - Physical Exam General Appearance: Yes: Nourished. No: Apparent Distress HEENT: positive: NISHA, Normal ENT Inspection, Normal Voice. negative: Pale Conjunctivae, Scleral Icterus (R), Scleral Icterus (L), TM Bulging, TM Dull Neck: positive: Supple. negative: Decreased range of motion, Tender midline Respiratory/Chest: positive: Lungs Clear, Normal Breath Sounds. negative: Respiratory Distress, Accessory Muscle Use, Labored Respiration, Decreased Breath Sounds, Wheezing Cardiovascular: positive: Regular Rhythm, Regular Rate Gastrointestinal/Abdominal: positive: Normal Bowel Sounds, Soft. negative: Tender Musculoskeletal: positive: Normal Inspection. negative: CVA Tenderness, Decreased Range of Motion Extremity: positive: Normal Capillary Refill, Normal Inspection, Normal Range of Motion. negative: Tender, Pedal Edema Integumentary: positive: Normal Color, Dry. negative: Jaundice, Rash Neurologic: positive: Fully Oriented, Alert, Normal Mood/Affect Moderate Sedation - Procedure Monitoring Vital Signs: Procedure Monitoring Vital Signs Temperature 98.2 F 05/18/18 09:54 Pulse Rate 104 H 05/18/18 09:54 Respiratory Rate 20 05/18/18 09:54 Blood Pressure 136/88 05/18/18 09:54 O2 Sat by Pulse Oximetry (%) 99 05/18/18 09:54 ED Treatment Course - RADIOLOGY Radiology Studies Ordered: Category Date Time Status CHEST PA & LAT [RAD] Stat Radiology 05/18/18 10:38 Ordered Medical Decision Making - Medical Decision Making 05/18/18 11:08 62 yo w/ viral syndrome, likely bronchitis, will do a CXR R/O pneumonia. WIll also do a neb trial and reassess 05/18/18 11:33 Pt feels a lot better after neb treatment, says that she no longer feels chest tightness, able to breath better, less cough. CXR normal. HR 98, O2sat 98. WIll discharge with albuterol, flonase, saline sanal spray and PMD follow up Return for worsening/concerning symtpoms Pt verbalizes understanding and agrees with plan *DC/Admit/Observation/Transfer Diagnosis at time of Disposition: Bronchitis - Discharge Dispostion Disposition: HOME Condition at time of disposition: Stable - Referrals Referrals: Geoffrey Sanchez PA [Primary Care Provider] - - Patient Instructions Printed Discharge Instructions: DI for Acute Bronchitis Additional Instructions: Rest and drink plenty of fluids. Use the pump 3-4 times a day for 3 days. Follow up with your PMD in 2-3 days for reassessment. Return for worsening/ concerning symptoms. - Post Discharge Activity
[2018-05-18] MEDS ORDERED: ACETAMINOPHEN 325 MG TABLET (FP) PO ONE (11:08)
[2018-05-18] MEDS ORDERED: ACETAMINOPHEN 325 MG TABLET (FP) ONE (11:11)
[2018-05-18 11:35] VITALS: PULSE 98
== END 2018-05-18 11:49 | disposition home or self-care (01) ==
LOC: JERFT 09:52
PROC: 3E0F7GC Introduction of Other Therapeutic Substance into Respiratory Tract, Via Natural or Artificial Opening (ICD-10-PCS; principal; 2018-05-18)
DX: J40 Bronchitis, not specified as acute or chronic (principal); I10 Essential (primary) hypertension; E78.00 Pure hypercholesterolemia, unspecified; Z87.19 Personal history of other diseases of the digestive system
CPT/HCPCS: 71046-TC-FY; 94640; 99281-25

== ENCOUNTER 2018-07-10 20:25 | Emergency (ER) | payer OTHER ==
--- NOTE | 2018-07-10 20:34 | PDOC ---
Rapid Medical Evaluation Chief Complaint: Blood Pressure Problem Time Seen by Provider: 07/10/18 20:32 Medical Evaluation: Allergies Allergy/AdvReac Type Severity Reaction Status Date / Time Penicillins Allergy Verified 05/18/18 09:57 procaine HCl [From Novocain] Allergy Verified 05/18/18 09:57 07/10/18 20:34 I have performed a brief in-person evaluation of this patient. The patient presents with a chief complaint of: Elevated BP at home. Asx Pertinent physical exam findings:BP 149/95, well tacho I have ordered the following:nothing The patient will be discharged from [facility] Discharge Disposition - Diagnosis Elevated blood pressure reading - Discharge Dispostion Disposition: HOME Condition at time of disposition: Good - Referrals - Patient Instructions Printed Discharge Instructions: How to Monitor Your Blood Pressure at Home Additional Instructions: Your BP was 149/95 Please follow up with your PMD for continued management of your blood pressure - Post Discharge Activity
[2018-07-10 20:37] VITALS: BP 149/95; PULSE 98; TEMP 98; BMI 23.8
--- NOTE | 2018-07-10 20:39 | PDOC ---
History of Present Illness - General Chief Complaint: Blood Pressure Problem Stated Complaint: HIGH BLOOD PRESURE Time Seen by Provider: 07/10/18 20:32 History Source: Patient - History of Present Illness Timing/Duration: other (tonight) Past History - Past Medical History Allergies/Adverse Reactions: Allergies Allergy/AdvReac Type Severity Reaction Status Date / Time Penicillins Allergy Verified 05/18/18 09:57 procaine HCl [From Novocain] Allergy Verified 05/18/18 09:57 Home Medications: Ambulatory Orders Hydrochlorothiazide [Hctz -] 25 mg PO DAILY 10/29/15 Mupirocin Ointment [Bactroban 2% Ointment -] 1 applic TP BID 7 Days #30 applic 05/11/18 Simvastatin mg PO DAILY 05/11/18 Sulfamethoxazole/Trimethoprim [Bactrim Ds -] 1 tab PO BID #14 tablet 05/11/18 Albuterol Sulfate Inhaler - [Ventolin HFA Inhaler -] 1 - 2 inh PO Q4H 3 Days #1 inhaler 05/18/18 Fluticasone Prop 0.05% Nasal [Flonase -] 1 spray NS DAILY 20 Days #1 bot Sodium Chloride [Saline Nasal [place]] 30 ml NS QID #1 bot 05/18/18 Anemia: No Asthma: No Cancer: No Cardiac Disorders: No CVA: No COPD: No CHF: No DVT: No Dementia: No Diabetes: No Dialysis: No GI Disorders: Yes (diverticulitis, constipation) HTN: Yes Hypercholesterolemia: Yes Seizures: No - Surgical History Cardiac Surgery: No Cholecystectomy: Yes Neurologic Surgery: No - Suicide/Smoking/Psychosocial Hx Smoking History: Never smoked Have you smoked in the past 12 months: No Hx Alcohol Use: No Drug/Substance Use Hx: No Substance Use Type: None Hx Substance Use Treatment: No Review of Systems - Review of Systems HEENTM: No: Blurred Vision Respiratory: No: Shortness of Breath Cardiac (ROS): No: Chest Pain, Lightheadedness, Palpitations Neurological: No: Headache, Tingling, Dizziness *Physical Exam - Physical Exam General Appearance: Yes: Appropriately Dressed. No: Apparent Distress HEENT: positive: Normal Voice Neck: positive: Supple Respiratory/Chest: positive: Lungs Clear, Normal Breath Sounds Cardiovascular: positive: Regular Rate, S1, S2 Integumentary: positive: Dry, Warm Neurologic: positive: Fully Oriented, Alert, Normal Mood/Affect Medical Decision Making - Medical Decision Making 07/10/18 20:36 62 yo F, h/o HLD, HTN, here for elevated BP read at home tonight. States she was seen by her PMD today and told to increase her BP meds (does not remember name of meds). Pt states also added HCTZ but has not had a chance to product picker meds from pharmacy yet. States after taking increased dose of home meds tonight , her BP was still elevated so decided to come to ED. Denies any sxs at this time. Pt well tacho w/ BP of 149/95. No further intervention needed in ED. Dc to product picker rx for HCTZ tomorrow and to continue to f/u with her PMD *DC/Admit/Observation/Transfer Diagnosis at time of Disposition: Elevated blood pressure reading - Discharge Dispostion Disposition: HOME Condition at time of disposition: Good - Referrals - Patient Instructions Printed Discharge Instructions: How to Monitor Your Blood Pressure at Home Additional Instructions: Your BP was 149/95 Please follow up with your PMD for continued management of your blood pressure - Post Discharge Activity
== END 2018-07-10 21:02 | disposition home or self-care (01) ==
LOC: JER 20:25
DX: R03.0 Elevated blood-pressure reading, without diagnosis of hypertension (principal); E78.5 Hyperlipidemia, unspecified; K59.00 Constipation, unspecified
CPT/HCPCS: 99281-25

== ENCOUNTER 2018-11-11 10:51 | Emergency (ER) | payer OTHER ==
[2018-11-11 11:23] VITALS: TEMP 98.3; BMI 23.4
[2018-11-11] MEDS ORDERED: METOCLOPRAMIDE HCL INJECTION 10 MG/2 ML VIAL IVPB ONE (11:54)
[2018-11-11] MEDS ORDERED: SODIUM CHLORIDE 0.9% 1000 ML INFUS.BAG IV ONE (11:54)
[2018-11-11] MEDS ORDERED: ACETAMINOPHEN 1000 MG/100 ML VIAL (NON FORMULARY) IVPB ONE (11:54)
[2018-11-11] MEDS ORDERED: ACETAMINOPHEN INJECTION 100 ML IVPB ONE (12:21)
[2018-11-11] MEDS ORDERED: METOCLOPRAMIDE HCL INJECTION 10 MG/2 ML VIAL ONE (12:21)
--- NOTE | 2018-11-11 12:23 | PDOC ---
History of Present Illness - General History Source: Patient, Family Exam Limitations: No Limitations - History of Present Illness Initial Comments: 11/11/18 12:12 62F with a PMH of HTN and HLD who presents to the ER for a headache. The patient describes 2 weeks of intermittent, bitemporal pressure associated with nausea and lightheadedness. She states that the pain is worsened when she walks or sits upright and has not taken anything to make herself feel better. She denies vision changes, numbness, tingling, weakness, neck stiffness, fever, chills. She does admit to chronic neck and back pain which are unrelated to this headache. <Leander Virgen - Last Filed: 11/11/18 13:25> <Adia Jefferson - Last Filed: 11/11/18 13:48> - General Chief Complaint: Migraine Headache Stated Complaint: HEADACHE Time Seen by Provider: 11/11/18 11:32 Past History - Past Medical History Anemia: No Asthma: No Cancer: No Cardiac Disorders: No CVA: No COPD: No CHF: No DVT: No Dementia: No Diabetes: No Dialysis: No GI Disorders: Yes (diverticulitis, constipation) HTN: Yes Hypercholesterolemia: Yes Seizures: No - Surgical History Cardiac Surgery: No Cholecystectomy: Yes Neurologic Surgery: No - Suicide/Smoking/Psychosocial Hx Smoking History: Never smoked Have you smoked in the past 12 months: No Information on smoking cessation initiated: No Hx Alcohol Use: No Drug/Substance Use Hx: No Substance Use Type: None Hx Substance Use Treatment: No <Leander Virgen - Last Filed: 11/11/18 13:25> <Adia Jefferson - Last Filed: 11/11/18 13:48> - Past Medical History Allergies/Adverse Reactions: Allergies Allergy/AdvReac Type Severity Reaction Status Date / Time Penicillins Allergy Verified 11/11/18 11:23 procaine HCl [From Novocain] Allergy Verified 11/11/18 11:23 Home Medications: Ambulatory Orders Hydrochlorothiazide [Hctz -] 12.5 mg PO DAILY 10/29/15 Simvastatin 20 mg PO DAILY 05/11/18 Albuterol Sulfate Inhaler - [Ventolin HFA Inhaler -] 1 - 2 inh PO Q4H PRN Amitriptyline HCl [Elavil -] 10 mg PO DAILY 11/11/18 Aspirin 81 mg PO DAILY 11/11/18 Cyclobenzaprine HCl 5 mg PO DAILY 11/11/18 Levocetirizine Dihydrochloride [Allergy Relief] 5 mg PO DAILY 11/11/18 Lidocaine 5% Patch [Lidoderm Patch -] 1 patch TP DAILY 11/11/18 Multivitamins [Tab-A-Vit -] 1 tab PO DAILY 11/11/18 Plecanatide [Trulance] 3 mg PO DAILY 11/11/18 Polyethylene Glycol 3350 [Clearlax] 17 gm PO DAILY 11/11/18 Tramadol HCl/Acetaminophen [Tramadol-Acetaminophn 37.5-325] 1 each PO DAILY 04/30 Review of Systems - Review of Systems Able to Perform ROS?: Yes Comments:: 11/11/18 12:25 GENERAL/CONSTITUTIONAL: No fever or chills. No weakness. HEAD, EYES, EARS, NOSE AND THROAT: No change in vision. No ear pain or discharge. No sore throat. CARDIOVASCULAR: No chest pain, palpitations, or lightheadedness. RESPIRATORY: No cough, wheezing, shortness of breath, or hemoptysis. GASTROINTESTINAL: No abdominal pain, nausea, vomiting, diarrhea, or constipation. GENITOURINARY: No dysuria, frequency, hematuria, or change in urination. MUSCULOSKELETAL: No joint or muscle swelling or pain. No neck or back pain. SKIN: No rash or lesions. NEUROLOGIC: + for headache. No numbness, tingling, focal weakness, loss of consciousness, or change in strength/sensation. Is the patient limited Malian proficient: No <Leander Virgen - Last Filed: 11/11/18 13:25> *Physical Exam - Vital Signs Last Vital Signs Temp Pulse Resp BP Pulse Ox 98.3 F 87 18 142/91 100 11/11/18 11:22 11/11/18 11:22 11/11/18 11:22 11/11/18 11:22 11/11/18 11:22 - Physical Exam Comments: 11/11/18 12:26 GENERAL: Well developed, well nourished. Awake and alert. No acute distress. HEENT: Normocephalic, atraumatic. Hearing grossly normal. Moist mucous membranes. PERRLA, EOMI. No conjunctival pallor. Sclera are non-icteric. Oropharynx is clear. NECK: Supple. Full ROM. No JVD. CARDIOVASCULAR: Regular rate and rhythm. No murmurs, rubs, or gallops. PULMONARY: No evidence of respiratory distress. Lungs clear to auscultation bilaterally. No wheezing, rales or rhonchi. ABDOMINAL: Soft. Non-tender. Non-distended. No rebound or guarding. GENITOURINARY: No CVA tenderness bilaterally. MUSCULOSKELETAL: Normal range of motion at all joints. No bony deformities or tenderness. EXTREMITIES: No cyanosis. No clubbing. No edema. No calf tenderness or swelling. SKIN: Warm and dry. Normal capillary refill. No rashes. No jaundice. NEUROLOGICAL: Alert, awake, appropriate. Cranial nerves 2-12 intact. No deficits to light touch and temperature in face, upper extremities and lower extremities. 5/5 strength in deltoids, biceps, triceps, quadriceps, hamstrings, and gastrocnemius. Normal speech. Gait is normal without ataxia. PSYCHIATRIC: Cooperative. Good eye contact. Appropriate mood and affect. <Leander Virgen - Last Filed: 11/11/18 13:25> - Vital Signs Last Vital Signs Temp Pulse Resp BP Pulse Ox 98.3 F 80 18 140/87 98 11/11/18 11:22 11/11/18 13:41 11/11/18 13:41 11/11/18 13:41 11/11/18 13:41 <Adia Jefferson - Last Filed: 11/11/18 13:48> ED Treatment Course - LABORATORY CBC & Chemistry Diagram: 11/11/18 12:38 11/11/18 12:38 - RADIOLOGY Radiology Studies Ordered: Category Date Time Status HEAD CT WITHOUT CONTRAST [CT] Stat CT Scan 11/11/18 11:59 Ordered <Leander Virgen - Last Filed: 11/11/18 13:25> - LABORATORY CBC & Chemistry Diagram: 11/11/18 12:38 11/11/18 12:38 - ADDITIONAL ORDERS Additional order review: Laboratory Results 11/11/18 12:38 Sodium 140 Potassium 4.4 Chloride 105 Carbon Dioxide 31 Anion Gap 4 L BUN 16.5 Creatinine 0.9 Est GFR (CKD-EPI)AfAm 79.42 Est GFR (CKD-EPI)NonAf 68.53 Random Glucose 90 Calcium 10.0 Total Bilirubin 0.4 AST 16 ALT 32 Alkaline Phosphatase 97 Total Protein 7.7 Albumin 3.8 11/11/18 12:38 RBC 4.52 MCV 87.2 MCHC 33.7 RDW 13.9 MPV 8.1 Neutrophils % 59.7 Lymphocytes % 29.5 D Monocytes % 8.2 Eosinophils % 2.0 Basophils % 0.6 - Medications Given in the ED: ED Medications Discontinued Medications Generic Name Dose Route Start Last Admin Trade Name Mir PRN Reason Stop Dose Admin Acetaminophen 1,000 mg 11/11/18 11:54 11/11/18 12:51 Ofirmev Injection - IVPB 11/11/18 11:55 1,000 mg ONCE ONE Administration Metoclopramide HCl 10 mg 11/11/18 11:54 11/11/18 12:50 Reglan Injection - IVPB 11/11/18 11:55 10 mg ONCE ONE Administration Sodium Chloride 1,000 ml 11/11/18 11:54 11/11/18 13:00 Normal Saline - IV 11/11/18 11:55 1,000 ml ONCE ONE Administration <Adia Jefferson - Last Filed: 11/11/18 13:48> Medical Decision Making - Medical Decision Making 11/11/18 12:26 62F with a PMH of HTN and HLD who presents with a gradual onset headache x 2 weeks without any neurologic deficits. Due to her age and history, will obtain labs and CTH. Will treat symptomatically and reassess. Incoming vitals WNL. Exam WNL. 11/11/18 13:25 CTH WNL. Labs WNL. Pt states she feels much better. Will d/c with neuro f/u as pt has appointment w/ Dr. Chopra, neuro, next week. <Leander Virgen - Last Filed: 11/11/18 13:25> *DC/Admit/Observation/Transfer - Discharge Dispostion Decision to Admit order: No <Leander Virgen - Last Filed: 11/11/18 13:25> <Adia Jefferson - Last Filed: 11/11/18 13:48> Diagnosis at time of Disposition: Nausea, Lightheadedness Headache Qualifiers: Headache type: tension-type Headache chronicity pattern: chronic headache Intractability: not intractable Qualified Code(s): G44.229 - Chronic tension- type headache, not intractable - Discharge Dispostion Disposition: HOME Condition at time of disposition: Stable - Referrals Referrals: Geoffrey Sanchez PA [Primary Care Provider] - - Patient Instructions Printed Discharge Instructions: DI for Headache Additional Instructions: Marx visita a la ian de emergencias no est completa hasta marx seguimiento con marx mdico de atencin primaria. Esperanza un seguimiento con marx mdico de atencin primaria en 1-2 edgar. Asista a marx gris con el Dr. Chopra y mencione que tuvo miles dolor de raymond que lo trajo a la ian de emergencias hoy. Regrese a la ian de emergencias si tiene signos o sntomas de dolor en el pecho , falta de aliento, fiebre incontrolable, escalofros, nuseas, vmitos, entumecimiento, hormigueo o debilidad en alguna parte de marx cuerpo, cambios en la visin o dificultad para hablar. Por favor tome ketan medicamentos elsie se los recetaron. Regrese a la ian de emergencias si los sntomas persisten, empeoran o surgen nuevos sntomas. Your ER visit is not complete until your follow up with your primary care physician. Please follow up with your primary care physician in 1-2 days. Please keep your appointment with Dr. Chopra and mention that you had this headache that brought you to the ER today. Please return to the ER if you have any signs or symptoms of chest pain, shortness of breath, uncontrollable fever, chills, nausea, vomiting, numbness, tingling, or weakness in any part of your body, changes in vision, or slurred speech. Please take your medications as prescribed. Please return to the ER if symptoms persist, worsen, or new symptoms arise. Print Language: IRISH
[2018-11-11 12:56] LABS: BASO % 0.6 % (0-2.0); HEMATOCRIT 39.4 % (32.4-45.2); HEMOGLOBIN 13.3 GM/dL (10.7-15.3); LYMPH % 29.5 % (8-40); MCH 29.4 pg (25.7-33.7); MCHC 33.7 g/dl (32.0-36.0); MEAN CELL VOLUME 87.2 fl (80-96); MEAN PLT VOLUME 8.1 fl (7.5-11.1); MONO % 8.2 % (3.8-10.2); NEUT % 59.7 % (42.8-82.8); PLATELET COUNT 356 K/MM3 (134-434); RBC 4.52 M/mm3 (3.60-5.2); RDW 13.9 % (11.6-15.6); WHITE BLOOD COUNT 7.3 K/mm3 (4.0-10.0)
[2018-11-11 13:15] LABS: ALBUMIN 3.8 g/dl (3.4-5.0); BILIRUBIN,TOTAL 0.4 mg/dL (0.2-1); BLOOD UREA NITROGEN 16.5 mg/dL (7-18); CREATININE 0.9 mg/dL (0.55-1.3); POTASSIUM 4.4 mmol/L (3.5-5.1); TOT PROT 7.7 g/dl (6.4-8.2)
--- NOTE | 2018-11-11 13:23 | PDOC ---
Attending Attestation - Resident Resident Name: Leander Virgen - ED Attending Attestation I have performed the following: I have examined & evaluated the patient, The case was reviewed & discussed with the resident, I agree w/resident's findings & plan, Exceptions are as noted - HPI HPI: 11/11/18 13:24 62yo F hx HTN, HL presents to the ED for 2 weeks of intermittent headaches. Pt reports bitemporal, gradual onset headaches that last for 2-3 hours at a time and self resolve. She states the pain is worse with movement or standing and is associated with nausea and lightheadedness. Reports similar headaches prior to 2 weeks ago, but presented today as the headaches kept coming back. Denies any focal weakness/numbness. Denies visual sxs. Denies stiff neck, dizziness. Denies CP, SOB, abd pain, LE edema, urinary sxs. At this time (after IVF, reglan , tylenol) pt states headache has resolved. - Physicial Exam PE: 11/11/18 13:40 GENERAL: Awake, alert, and fully oriented, in no acute distress. Very pleasant. HEAD: No signs of trauma EYES: PERRLA, EOMI, sclera anicteric, conjunctiva clear ENT: Auricles normal inspection, hearing grossly normal, nares patent, oropharynx clear without exudates. Moist mucosa NECK: Normal ROM, supple, no lymphadenopathy, JVD, or masses LUNGS: Breath sounds equal, clear to auscultation bilaterally. No wheezes, and no crackles HEART: Regular rate and rhythm, normal S1 and S2, no murmurs, rubs or gallops ABDOMEN: Soft, nontender, normoactive bowel sounds. No guarding, no rebound. No masses EXTREMITIES: Normal range of motion, no edema. No clubbing or cyanosis. No cords, erythema, or tenderness NEUROLOGICAL: Normal speech, cranial nerves intact, negative pronator drift, 5/ 5 strength in all 4 extremities, normal sensation to light touch in all 4 extremities, normal cerebellar exam, normal gait, normal reflexes and tone SKIN: Warm, Dry, normal turgor, no rashes or lesions noted. - Medical Decision Making 11/11/18 13:42 62yo F presents to the ED with 2 weeks of intemrittent headache, now resolved No red flag sxs of sudden onset, thunderclap quality, stiff neck, or neuro deficits Pt well appearing Likely tension or migaine headache although given duration of headache, CTH was obtained which was negative Labs wnl Pt has f/u with Dr. Chopra in 1.5 weeks for chronic back pain, advised her to f /u with him for her headaches as well She is clincially stable for DC home I discussed the physical exam findings, ancillary test results and final diagnoses with the patient. I answered all of the patient's questions. The patient was satisfied with the care received and felt comfortable with the discharge plan and treatment plan. The patient will call their primary care physician within 24 hours to arrange follow-up and will return to the Emergency Department with any new, persistent or worsening symptoms.
[2018-11-11 13:42] VITALS: BP 140/87; PULSE 80
== END 2018-11-11 13:42 | disposition home or self-care (01) ==
LOC: JER 10:51
PROC: 3E033NZ Introduction of Analgesics, Hypnotics, Sedatives into Peripheral Vein, Percutaneous Approach (ICD-10-PCS; principal; 2018-11-11)
PROC: 3E033GC Introduction of Other Therapeutic Substance into Peripheral Vein, Percutaneous Approach (ICD-10-PCS; 2018-11-11)
PROC: 3E0337Z Introduction of Electrolytic and Water Balance Substance into Peripheral Vein, Percutaneous Approach (ICD-10-PCS; 2018-11-11)
DX: G44.209 Tension-type headache, unspecified, not intractable (principal); I10 Essential (primary) hypertension; E78.5 Hyperlipidemia, unspecified; Z87.19 Personal history of other diseases of the digestive system
CPT/HCPCS: 36415; 70450-TC; 80053; 85025; 96374; 96375; 99282-25; J0131; J7030

== ENCOUNTER 2019-05-21 19:16 | Emergency (ER) | payer OTHER ==
[2019-05-21] MEDS ORDERED: ONDANSETRON 4 MG/2 ML VIAL IVPUSH ONE (19:36)
--- NOTE | 2019-05-21 19:36 | PDOC ---
Rapid Medical Evaluation Time Seen by Provider: 05/21/19 19:34 Medical Evaluation: Allergies Allergy/AdvReac Type Severity Reaction Status Date / Time Penicillins Allergy Verified 11/11/18 11:23 procaine HCl [From Novocain] Allergy Verified 11/11/18 11:23 05/21/19 19:35 HPI: Abdominal pain since this am PE: No gross deficits ORDERS: Labs EKG Discharge Disposition - Diagnosis Abdominal pain - Referrals - Patient Instructions - Post Discharge Activity
[2019-05-21 19:38] VITALS: BP 149/85; PULSE 107; TEMP 98.4; BMI 29.2
== END 2019-05-21 20:05 | disposition left against medical advice (07) ==
LOC: JER 19:16
DX: R10.9 Unspecified abdominal pain (principal); Z88.0 Allergy status to penicillin; Z88.8 Allergy status to other drugs, medicaments and biological substances
CPT/HCPCS: 99284-25